=== PATIENT | female | born 1940 | race Caucasian/White ===

== ENCOUNTER 2016-05-19 11:41 | Inpatient (IN) | payer MEDICARE, OTHER ==
[~2016-05-19] VITALS: Ht 170.2 cm; Wt 63.0 kg
--- NOTE | ~2016-05-19 | CON ---
PATIENT'S NAME: ALLAN SANDERS [facility] AGE: 75 Y [address] ROOM: [place] [address] LOCATION: GPCU ADMIT DATE: 05/19/2016 Consultation DISCHARGE DATE: FAMILY PHYSICIAN: Linda Hopson MD ATTENDING PHYSICIAN: ADONAY SABILLON REASON FOR CARDIOLOGY CONSULTATION: Atrial fibrillation. HISTORY OF PRESENT ILLNESS: This is a 75-year-old female, who has been having increased complaints of shortness of breath over the last few weeks that has progressively gotten worse. She initially presented to Dr. Hopson's office for evaluation. She then presented to the emergency department, where she was found to be hypoxic and hypotensive. She had noted hypoxia and hypotension at the clinic, and this was the reason for transfer to the [facility] for further evaluation and higher level of care. She had a previous history of COPD and normally wears up to 4 L of oxygen at home. She does have an extensive smoking history and just quit smoking about 2 weeks ago. She has smoked half a pack per day for the last 50 years. She also has a previous history of diastolic congestive heart failure, but does not take a daily diuretic and has noted some increased edema over the last few weeks as well. She normally follows cardiology care with Dr. 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 Last ejection fraction was noted to be 60%-65%. Her chart review shows a previous history of paroxysmal atrial fibrillation and at this time, there is no contraindication that can be found for anticoagulation. PAST MEDICAL HISTORY: 1. Hypertension. 2. Chronic diastolic congestive heart failure. 3. COPD. 4. Hyperlipidemia. 5. Pulmonary hypertension. 6. Noncritical coronary artery disease. FAMILY HISTORY: There is noted family history of hypertension and coronary artery disease, specifically from her father. Her mother had osteoarthritis. SOCIAL HISTORY: As listed in the HPI as well as denying any alcohol or illicit drug use. CURRENT MEDICATIONS: 1. Lasix 40 mg IV daily. PATIENT'S NAME: ALLAN SANDERS [facility] AGE: 75 Y [address] ROOM: [place] [address] LOCATION: GPCU ADMIT DATE: 05/19/2016 Consultation DISCHARGE DATE: FAMILY PHYSICIAN: Linda Hopson MD ATTENDING PHYSICIAN: ADONAY SABILLON 2. Levaquin 750 mg IV daily. 3. Solu-Medrol 60 mg IV twice daily. 4. Lipitor 40 mg p.o. daily. 5. NicoDerm 21 mg transdermally daily. 6. Heparin IV per ACS protocol. MEDICATION ALLERGIES: No known medication allergies. REVIEW OF SYSTEMS: Pertinent positive review of systems is listed in HPI. All other review of systems are evaluated and negative. DIAGNOSTICS: CMS evaluation shows sodium of 144, potassium 4.4, BUN of 36, creatinine 1.0, glucose of 138, and magnesium of 2.2. She had [place] proB[place] 6257. CT for PE protocol was negative for pulmonary embolus. CBC evaluation shows a white blood cell count of 5.7, hemoglobin 9.5, hematocrit 32.5, and a platelet of 132. PHYSICAL EXAMINATION: VITAL SIGNS: Temp 98.0, pulse 89, respirations 20, blood pressure 133/61, O2 saturation 95% on 4 L nasal cannula. The patient weighs 70.9 kg. SKIN: [place], warm, and dry. EYES: Sclerae clear. No xanthelasmas. ENT: Oral mucosa is pink and moist. No jugular venous distention. No carotid bruits. CHEST: Respirations are even and unlabored. Lung sounds are diminished to bilateral basilar lobes. She does have a mild expiratory wheeze noted to the upper lobes. HEART: Irregular rate and rhythm. Normal S1, S2. ABDOMEN: Soft, nontender. MUSCULOSKELETAL: Equal muscle strength in the upper and lower extremities bilaterally against resistance. EXTREMITIES: Peripheral pulses palpable. No clubbing or cyanosis noted. Does have 2 to 3+ lower extremity edema present as well as an ecchymosis. PSYCHIATRIC: Alert and oriented. Mood and affect are appropriate. IMPRESSION AND PLAN: Per Dr. Owens: 1. New-onset atrial fibrillation. Rates are currently well controlled with previous doses of IV digoxin and is anticoagulated with IV heparin. 2. Acute on chronic hypercapnic respiratory failure. 3. Hypotension, currently resolved. 4. Chronic diastolic congestive heart failure. PATIENT'S NAME: ALLAN SANDERS [facility] AGE: 75 Y [address] ROOM: [place] [address] LOCATION: [facility] ADMIT DATE: 05/19/2016 Consultation DISCHARGE DATE: FAMILY PHYSICIAN: Linda Hopson MD ATTENDING PHYSICIAN: ADONAY SABILLON 5. Chronic obstructive pulmonary disease. 6. Chronic kidney disease. 7. Hypertension. We will try and get Dr. Hill's last office records for full evaluation of her previous cardiac history. We will continue to monitor, evaluate, and treat as appropriate. Thank you for this consult. Thank you for allowing [facility] to interact in the care of this patient. RAIZA GRAVES APRN FOR MD WOOD MAHAN/isabel /[id number] d: 05/20/16 2211 t: 06/03/16 0923, CONSULTATION REPORT
--- NOTE | ~2016-05-19 | HP ---
PATIENT'S NAME: ALLAN [facility]ERS [facility] AGE: 75 Y [address] ROOM: [address] [place] [address] [facility] ADMIT DATE: 05/19/2016 History & Physical DISCHARGE DATE: FAMILY PHYSICIAN: Linda Hopson MD ATTENDING PHYSICIAN: ADONAY SABILLON DATE OF SERVICE: ADDENDUM: I have personally spoken to Dr. Owens regarding the consult for the new onset atrial fibrillation with RVR with an acute on chronic diastolic heart failure. Dr. Owens will be evaluating the patient today for further recommendation and planning. Regarding her acute on chronic hypoxemic hypercapnic respiratory failure from COPD exacerbation, patient is alert and oriented x3. Oxygen saturation has improved significantly after the digoxin was given for the AFib RVR in the setting of borderline blood pressure and the heart failure. For now, I am going to hold off on the BiPAP. I will check an ABG in the morning to see if BiPAP will be necessary. Given the patient does not have any altered mental status and oxygen saturation has already improved to 94% on 4 L nasal cannula, at home she uses 2 L at all times. She was requiring up to 15 L face mask to reach 96%. For this reason, I am going to hold off on the BiPAP and repeat ABG in the morning to decide about BiPAP. Further plan and recommendation per Cardiology to see for the consult. I saw the patient again as a followup. The patient is doing well. Still remained alert and oriented x3 and says that the dyspnea has improved a lot. No chest pain. No cough at the moment. Further plan depends on clinical course. The arterial line was removed already given that the blood pressure was able to be read by the blood pressure cuff. IV fluids have been stopped already also. ADONAY SABILLON MD CC/modl /[id number] D: [id number] T: [id number] HISTORY & PHYSICAL
--- NOTE | ~2016-05-19 | ER ---
PATIENT'S NAME: ALLAN SANDERS [facility] AGE: 75 Y [address] ROOM: [place] [address] LOCATION: GPCU ADMIT DATE: 05/19/2016 ER/Outpatient Report DISCHARGE DATE: FAMILY PHYSICIAN: Linda Hopson MD ATTENDING PHYSICIAN: ADONAY SABILLON CHIEF COMPLAINT: Difficulty breathing. HISTORY OF PRESENT ILLNESS: The patient arrives by ambulance from [facility] where she saw Dr. Ramesh for shortness of breath which started this morning. The patient has a known history of COPD, pulmonary hypertension, and reports atrial fibrillation, but there is no medical documentation of same. She also was noted to have very low blood pressures in the 70s at their facility and was requiring multiple liters of oxygen to maintain oxygen levels above 70%. She is a former smoker. She denies any cough or fevers associated with this. She denies any significant pain. PAST MEDICAL HISTORY: Noted above and documented on the medical record. MEDICATIONS: Documented as available on the medical record. ALLERGIES: DOCUMENTED AVAILABLE ON THE MEDICAL RECORD. SOCIAL HISTORY: Documented as available on the medical record. REVIEW OF SYSTEMS: All systems reviewed and negative except as noted in the HPI. PHYSICAL EXAMINATION: VITAL SIGNS: Blood pressure is extremely low, pulse is between 91 and 150 beats per minute, respirations are 20 and labored, temp is 95.4, SpO2 is 96% on 15 L nonrebreather with poor plethysmography. GENERAL: Frail, ill-appearing female, resting on exam table in moderate respiratory distress, but able to speak in full sentences and answer appropriately. NEUROLOGIC: The patient is awake and alert. She follows commands in all extremities. She is adamant about having some coughing. She has no obvious neurologic deficits. No asymmetry on exam. HEENT: Normocephalic, atraumatic. The eyes are PERRL. The oropharynx is PATIENT'S NAME: ALLAN SANDERS [facility] AGE: 75 Y [address] ROOM: [place] [address] LOCATION: GPCU ADMIT DATE: 05/19/2016 ER/Outpatient Report DISCHARGE DATE: FAMILY PHYSICIAN: Linda Hopson MD ATTENDING PHYSICIAN: ADONAY SABILLON clear. Teeth are in poor repair. NECK: Supple. Trachea is midline. HEART: Tachycardic irregularly. No obvious murmurs. LUNGS: Diminished air entry bilateral, coarse throughout, most prominent at the bases. ABDOMEN: Soft, nontender, and nondistended. No rebound or guarding. EXTREMITIES: Very cool in the fingers, poor capillary refill, cyanotic digits. The pulses are faint. The extremities do not reveal any erythema or edema. SKIN: Skin is with poor turgor throughout. No obvious rashes. LABORATORY DATA AND X-RAYS: Chest x-ray reveals possible pneumonia, appropriately placed IJ line, no pneumothorax. The EKG reveals atrial fibrillation. Blood gas; pH 7.3, pCO2 is 85, pO2 is 322, bicarb is 41.8. Lactate 0.9. Procalcitonin is below threshold. CPK of 53. Hemoglobin A1c is 5.2. Anion gap of 7.3, CO2 is 37, creatinine 0.8. GFR is greater than 60. Troponin is below threshold. ProBNP is 4959. LFTs are without any significant abnormalities other than minimally elevated direct bilirubin and minimally elevated AST and ALT at 64 and 88 respectively. Magnesium is 2.2. WBC 6.6, hemoglobin is 9.9, and platelets of 148. INR is 1.2. D-dimer is 1.24. CT of the pulmonary arteries without abnormality, some pulmonary edema appreciated. IMPRESSION: 1. Heart failure exacerbation versus chronic obstructive pulmonary disease exacerbation. 2. Oxygenation difficulty with severe hypoxia. 3. Hypotension, possibly secondary to atrial fibrillation with rapid ventricular response. EMERGENCY DEPARTMENT COURSE: The patient was seen and evaluated. Tenuous IV obtained, second IV access not able to be obtained. Fluids were started through initial IV and the central line was placed. Anesthesia did obtain an arterial line for us. The patient did have improvement in her blood pressures at that time. Postprocedural chest x-ray for the IJ revealed no pneumothorax and the IJ line to be in the appropriate position. The patient remained, otherwise, stable. Did have better blood pressures upon initiation of the arterial line and heart rates had come down somewhat, but she remained in atrial fibrillation. With her complicated presentation and course, Dr. Sabillon, hospitalist, helped manage her in the emergency department. She will be admitted to PCU under his care for further evaluation and treatment of this complex presentation with multiple medical conditions. Procedure note: I personally placed the central line after obtaining signed consent for procedure. The right IJ was identified with ultrasound. It was determined to be an appropriate access. The patient was placed as recumbent as she would tolerate which was still slightly with head of bed elevated. The IJ remained appropriately distended. Sterile technique was used to secure the field. A 1 mL of lidocaine was placed over the proposed site for anesthesia. The area was prepped with chlorhexidine and was draped appropriately. The needle was advanced into the IJ under ultrasound guidance. Nonpulsatile dark blood was aspirated in a superficial lateral collapsible vessel. The wire was advanced using a Seldinger technique and confirmed to be in the IJ by ultrasound. The skin was dilated with the dilator and the triple-lumen 7- Canadian catheter was placed after ensuring that all ports were flushed. This was placed to a depth of 15 cm and sut[address] in place. There was a small hematoma at the site. I was able to again visualize the catheter going into the IJ, not the carotid. Again the blood flow was nonpulsatile. The lumens were all rocio and flushed easily. The patient tolerated this procedure well and a sterile dressing was placed. I did attempt a right radial arterial line, was able to get blood return but could not thread the catheter. MD KIRILL MARVIN/isabel /[id number] d: 05/20/16 0024 t: 06/02/16 2145, OUTPATIENT REPORT
--- NOTE | ~2016-05-19 | ENPV ---
Vascular Lower Extremities DVT Study Procedure Demographics Patient Name ALLAN SANDERS Date of Study 05/19/2016 Patient Number [id number] Gender Female Date of 1940 Age 75 Visit Number [id number] Height 67 Accession Number [id number] Weight 135 Referring Emiliana Arango MD Physician Physician Physician Ordering Physician Yue Espino MD Diesel Engineer Insurance Claim Approver Hola [place] [facility] Conclusions Summary Normal venous duplex examination of the legs bilaterally with normal venous Doppler signals noted throughout. No evidence of thrombophlebitis is noted bilaterally in the deep and superficial veins of the legs. Small calf thrombi cannot be excluded. Pulsatile flow noted throughout the venous system consistent with CHF. Procedure Type of Study: Veins:Lower Extremities DVT Study, Venous Duplex Lower Extremity Bilateral. Additional Indications:Elevated D-dimer Appropriate Use Criteria:8 Allergies - No known allergies. Patient Status:Routine. Study Location:Inpatient Portable. Technical Quality:Poor visualization. Velocities are measured in cm/s ; Diameters are measured in cm Right Lower Extremities DVT Study Measurements Right 2D and Doppler Measurements + + + + +---------+------+--------+ !Location !Visualized!Compressibility!Thrombosis!Signal !Reflux!Reflux ! ! ! ! ! ! ! !(sec) ! + + + + +---------+------+--------+ !GSV Thigh !Yes !Yes !None !Pulsatile! ! ! + + + + +---------+------+--------+ !Common !Yes !Yes !None !Pulsatile! ! ! !Femoral ! ! ! ! ! ! ! + + + + +---------+------+--------+ !Prox !Yes !Yes !None !Pulsatile! ! ! !Femoral ! ! ! ! ! ! ! + + + + +---------+------+--------+ !Mid !Yes !Yes !None !Pulsatile! ! ! !Femoral ! ! ! ! ! ! ! + + + + +---------+------+--------+ !Dist !Yes !Yes !None !Pulsatile! ! ! !Femoral ! ! ! ! ! ! ! + + + + +---------+------+--------+ !Popliteal !Yes !Yes !None !Pulsatile! ! ! + + + + +---------+------+--------+ !PTV !Yes !Yes !None !Pulsatile! ! ! + + + + +---------+------+--------+ !Peroneal !Yes !Yes !None !Pulsatile! ! ! + + + + +---------+------+--------+ Left Lower Extremities DVT Study Measurements Left 2D and Doppler Measurements + + + + +---------+------+--------+ !Location !Visualized!Compressibility!Thrombosis!Signal !Reflux!Reflux ! ! ! ! ! ! ! !(sec) ! + + + + +---------+------+--------+ !GSV Thigh !Yes !Yes !None !Pulsatile! ! ! + + + + +---------+------+--------+ !Common !Yes !Yes !None !Pulsatile! ! ! !Femoral ! ! ! ! ! ! ! + + + + +---------+------+--------+ !Prox !Yes !Yes !None !Pulsatile! ! ! !Femoral ! ! ! ! ! ! ! + + + + +---------+------+--------+ !Mid !Yes !Yes !None !Pulsatile! ! ! !Femoral ! ! ! ! ! ! ! + + + + +---------+------+--------+ !Dist !Yes !Yes !None !Pulsatile! ! ! !Femoral ! ! ! ! ! ! ! + + + + +---------+------+--------+ !Popliteal !Yes !Yes !None !Pulsatile! ! ! + + + + +---------+------+--------+ !PTV !Yes !Yes !None !Pulsatile! ! ! + + + + +---------+------+--------+ !Peroneal !Yes !Yes !None !Pulsatile! ! ! + + + + +---------+------+--------+ Signature dtt: ILANA JUDD: 05/19/166 Physician Self Edit
--- NOTE | ~2016-05-19 | ECHO ---
Transthoracic Echocardiography Report (TTE) Demographics Patient Name ALLAN SANDERS Date of Study 05/20/2016 Patient Number [id number] Visit Number [id number] Date of 1940 Room Number G6318 Accession Number [id number] Gender Female Age 75 year(s) Referring Emiliana Sousassru Garcia Nurse Ldr Jean Tyson Physician MD Yue Espino MD Physician Interpreting Yane Sorto Preparation Department Supervisor Physician Supervising Ordering Physician Jake Garcia MD, MD/P Nurse Stress Pen And Pencil Repairer Conclusions Summary Technically difficult study. The estimated left ventricular ejection fraction is 50-55%. Diastolic function indeterminate due to patient's arrhythmia. The right atrium is moderately dilated. The left atrium is mildly dilated. Dilated IVC with poor inspiratory collapse consistent with elevated RA pressure. IVC measures 2.59 cm with poor inspiratory collapse. There is moderate pulmonary hypertension. The pulmonary pressure (RVSP) is 54 mmHg. Procedure Type of Study TTE procedure:2D Echocardiogram, M-Mode, Doppler , Color Doppler. Procedure Date Date: 05/20/2016 Start: 02:51 PM Study Location: Inpatient Portable Technical Quality: Adequate visualization Indications:Dyspnea/SOB. Appropriate Use Criteria: 9 Patient Status: STAT HR: 136 bpm BP: 108/80 mmHg Allergies - No known allergies. M-Mode/2D Measurements LV Diastolic Dimension: 5.05 cm LV Systolic Dimension: 3.16 cm LV Septum Diastolic: 1.03 cm LV PW Diastolic: 1.02 cm AO Root Dimension: 2.2 cm Cardiac Output: 6.47 l/min LA Dimension: 3.3 cm EF Estimated: 55 % LVOT: 1.9 cm LVOT VTI: 16.8 cm RV Base: 2.5 cm LV Stroke volume: 47.61 ml RV Length: 5.88 cm TAPSE: 2.06 cm TDI-S': 23.1 cm/s Doppler Measurements AV Peak Velocity: 1.78 m/s MV Peak E-Wave: 1.39 m/s AV Peak Gradient: 12.67 mmHg AV Mean Gradient: 6 mmHg MV P1/2t: 40 msec LVOT Peak Velocity: 1.04 m/s TR Velocity:3.14 m/s PV Peak Velocity: 1.35 m/s TR Gradient:39.44 mmHg PV Peak Gradient: 7.29 mmHg Estimated RAP:15 mmHg Estimated PASP: 54.44 mmHg Estimated RVSP: 54 mmHg E' Septal Velocity: 0.08 m/s E' Lateral Velocity: 0.1 m/s Findings Left Ventricle The left ventricle is normal in size . Diastolic function indeterminate due to patient's arrhythmia. Right Ventricle Normal right ventricle structure and function. Left Atrium The left atrium is mildly dilated. Right Atrium The right atrium is moderately dilated. Dilated IVC with poor inspiratory collapse consistent with elevated RA pressure. IVC measures 2.59 cm with poor inspiratory collapse. Mitral Valve Mild mitral annular calcification. Aortic Valve The aortic valve is mildly sclerotic. Tricuspid Valve Mild tricuspid regurgitation by color Doppler. There is moderate pulmonary hypertension. The pulmonary pressure (RVSP) is 54 mmHg. Pulmonic Valve Normal pulmonic valve structure and function. Pericardial Effusion Trivial pericardial effusion. Miscellaneous Visualized portions of the aortic root and ascending aorta appear normal in size. Pleural Effusion No evidence of pleural effusion. Signature dtt: PADDY SHAH dtd: 05/20/16 1451 Physician Self Edit
--- NOTE | ~2016-05-19 | HP ---
PATIENT'S NAME: ALLAN SANDERS [facility] AGE: 75 Y [address] ROOM: [id number] [place], [place] [address] [facility] ADMIT DATE: 05/19/2016 History & Physical DISCHARGE DATE: FAMILY PHYSICIAN: Linda Hopson MD ATTENDING PHYSICIAN: ADONAY SABILLON DATE OF SERVICE: CHIEF COMPLAINT: Hypotension, hypoxia, atrial fibrillation with RVR as well as dyspnea at rest and also on exertion. HISTORY OF PRESENT ILLNESS: This is a 75-year-old female, who says that she has been experiencing exertional dyspnea and dyspnea at rest for the last 2 to 3 weeks and has been progressively getting worse. She also complains of generalized weakness in the last few weeks as well. She denies any fall. She denies any chest pain, palpitation, diaphoresis, shivering, or chills. The patient states that for the last few days she has been having some dry cough without any sputum. She states that she recently quit smoking about 2 weeks ago. She used to smoke about half pack per day for the last 45 to 50 years. She has a very severe COPD, chronically on 4 L oxygen nasal cannula at home, 31/08. Today, she went to the [facility] for followup and the patient was found to be very hypotensive, blood pressure to be in the low 50s and heart rate is in the high 140s and also hypoxic with 4 L nasal cannula saturating at 75% and the patient was complaining of dyspnea. EKG was performed in the office and it showed atrial fibrillation with RVR, heart rate in the 128. According to the patient, she told me that Dr. Hill is her primary appraiser, and the patient told me that she had been told in the past that she had atrial fibrillation, but she was not really sure of this information when I asked the patient again. Chest x-ray was performed in the office and there was a concern for the right lower lung infiltrate. The patient was sent over here for higher level of care. REVIEW OF SYSTEMS: As mentioned in the history of present illness. All other systems reviewed and negative except those mentioned in the history of present illness. PAST MEDICAL HISTORY: Per medical records. 1. Very severe COPD, on 4 L nasal cannula, 31/08. 2. Hypertension. 3. Chronic diastolic congestive heart failure. We do not have any echo on file. 4. Hyperlipidemia. PATIENT'S NAME: ALLAN SANDERS [facility] AGE: 75 Y [address] ROOM: [id number] [place], [place] [address] [facility] ADMIT DATE: 05/19/2016 History & Physical DISCHARGE DATE: FAMILY PHYSICIAN: Linda Hopson MD ATTENDING PHYSICIAN: ADONAY SABILLON 5. Lcysqdxa-vo-xpjmea pulmonary hypertension per medical records. Again, we do not have any echo on file to know the numbers. 6. Possible multiple sclerosis. 7. According to our medical records in the [facility], the patient had cardiac catheterization performed in October 29, 2015. At that time, it showed nonobstructive coronary artery disease. Normal left ventricular ejection fraction with EF of 75%. ALLERGIES: NO KNOWN DRUG ALLERGIES ACCORDING TO THE MEDICAL RECORDS. HOME MEDICATIONS: Currently has been reconciled. SOCIAL HISTORY: The patient was a former cigarette smoker, she quit about 2 to 3 weeks ago, she used to smoke about half pack per day for the last 45 to 50 years. She denies any alcohol or any illegal drug use. FAMILY HISTORY: Father had diabetes, hypertension, and coronary artery disease, but she could not remember all the details. Mother had osteoarthritis and she could not recall any other past medical history in the mother. PAST SURGICAL HISTORY: The patient could not remember and denies any. PHYSICAL EXAMINATION: VITAL SIGNS: At the time of my dictation; temperature 98, heart rate 110, blood pressure 110/70, MAP of 79, respiration rate 14, and saturation 90% on face mask on 15 L. GENERAL APPEARANCE: Alert and oriented x3. In no acute distress. HEENT: Pupils equally round and reactive to light. Extraocular muscles intact. Nasal turbinates are normal bilaterally. Anicteric sclerae. Moist oral mucosa. No oral thrush. NECK: No JVD. No cervical lymphadenopathy. No neck stiffness. CARDIOVASCULAR: Irregularly irregular rate and rhythm. Tachycardic. Could not appreciate murmur, rubs, or gallops. RESPIRATORY: Decreased breath sounds with scattered wheezing diffusely with very decreased breath sounds. Could not appreciate crackles, rhonchi, or rales. ABDOMEN: Soft, nontender, nondistended, normal bowel sounds. No hepatosplenomegaly. Bowel sounds are present. No palpable mass. EXTREMITIES: +2 bilateral pitting edema in bilateral lower extremities. The patient cannot tell me this is acute on chronic because she does not remember. PATIENT'S NAME: ALLAN SANDERS [facility] AGE: 75 Y [address] ROOM: [id number] [place], [place] [address] [facility] ADMIT DATE: 05/19/2016 History & Physical DISCHARGE DATE: FAMILY PHYSICIAN: Linda Hopson MD ATTENDING PHYSICIAN: ADONAY SABILLON NEUROLOGIC: Grossly nonfocal. SKIN: She does have cyanosis in the finger tips of each finger and also on the tips of each toes. I could still feel the dorsalis pedis pulse and posterior tibialis pulse bilaterally. MUSCULOSKELETAL: No joint pain. No muscle pain. Range of motion intact. LABORATORY DATA: ABG performed on the face mask on 15 L showed pH of 7.30, pCO2 of 85, pO2 of 322, bicarbonate 41.8, and saturation of 100%. Lactic acid 0.9. Troponin less than 0.04. CPK 53. ProBNP 4959. White blood cells 6.6, hemoglobin 9.9, hematocrit 34.1, MCV is 111.4, and platelet 148. Glucose 102, BUN 28, creatinine 0.8, sodium 142, potassium 4.3, chloride 102, CO2 of 27, calcium 7.7, total protein 6.5, albumin 3.2, AST 64, ALT 88, alkaline phosphatase 153, total bilirubin 0.9, direct bilirubin 0.4, magnesium 2.2, GFR more than 60, INR 1.22, PTT 32, and hemoglobin A1c 5.2. Urinalysis not yet received. Influenza not yet performed. Procalcitonin less than 0.05. CK-MB 3.4. D- dimer 1.24. IMAGING STUDIES: Chest x-ray performed on admission, official report is pending. Based on my review, it looks very similar to the last one back in April 30, 2014. At that time, it was read as suspected right lung base pneumonia. Official reading is pending. CT pulmonary angiogram currently has been performed and report is pending. EKG here on admission showed atrial fibrillation with RVR, heart rate 118, QRS 88 milliseconds. ER COURSE: Upon arrival here, the patient's blood pressure was difficult to be obtained, not with the blood pressure cuff and also manually also has difficult time to get blood pressure. Eventually, arterial line was placed in the left radial artery by the certified registered nurse of the Anesthesia and the blood pressure was able to be obtained. However, this was obtained after 1 L of IV normal saline bolus. Blood pressure currently is read as around 100 to 110s systolic, MAP around 70 to 79. In the emergency room, given that the patient has a very poor IV access, the patient eventually had triple-lumen central line placed in the right IJ by the ER physician, Dr. Boogie. Chest x-ray was performed subsequently after the central line placement and was clear to be used after being review by the ER physician, Dr. Boogie. The patient currently is getting a second liter of normal saline bolus. Heart rate is still running in the 100 to 110, 110 to 120, still atrial fibrillation with RVR. Her oxygen level requirement still on the 15 L face mask, barely saturating at 90%. The patient is currently being wheeled to the CT pulmonary angiogram to rule out pulmonary embolism. ASSESSMENT AND PLAN: PATIENT'S NAME: ALLAN SANDERS [facility] AGE: 75 Y [address] ROOM: [place] [address] LOCATION: [facility] ADMIT DATE: 05/19/2016 History & Physical DISCHARGE DATE: FAMILY PHYSICIAN: Linda Hopson MD ATTENDING PHYSICIAN: ADONAY SABILLON 1. Regarding her acute on chronic hypoxemic hypercapnic respiratory failure; likely from chronic obstructive pulmonary disease exacerbation, from possible right lower lung pneumonia as well as from possible pulmonary embolism, and also in the setting of probably new onset atrial fibrillation with rapid ventricular response in the setting of chronic diastolic heart failure: Currently, the patient will be going to get a CT pulmonary angiogram to rule out pulmonary embolism. Depending on the finding, further plan will be decided. The patient is a DNR/DNI. ABG showed that she does have acute on chronic hypoxemic hypercapnic respiratory failure. Therefore, I am going to put on the BiPAP given that reviewing her prior lab, usually her pCO2 back in 2014 runs in the 46, this time is an 85. Her bicarbonate usually runs in the 35 back in 2014, today is still in the 37. Therefore, this means that she is having acute on chronic hypercapnic hypoxemic respiratory failure. The patient is DNR/DNI. The most I can offer her is a BiPAP at this time. The patient understands. I also explained this to the family member, who also understands. If she does have a pulmonary embolism, therefore anticoagulation will be definitely necessary. If she becomes hypotensive in the setting of a pulmonary embolism, further plan will be necessary including tPA for hemodynamically unstable pulmonary embolism. Further plan depends on clinical course. For the possible pneumonia and chronic obstructive pulmonary disease exacerbation given that she is actively wheezing, I will treat her with the chronic obstructive pulmonary disease protocol with IV Solu-Medrol 125 mg IV right now followed by 60 mg b.i.d. Nebulization with Xopenex plus Atrovent q.6 hours while awake and also Xopenex q.2 hours p.r.n. She will be getting pneumonia workup including sputum culture, Gram-stain, urinary antigen, and Legionella. We will also check influenza nasal antigen swab. We will give incentive spirometry to use 10 times per hour while awake and then cover with IV antibiotics with IV Levaquin since she came from home. 2. Regarding her apparently probably new onset atrial fibrillation with rapid ventricular response, this could be the setting from the possible pulmonary embolism or from the chronic obstructive pulmonary disease exacerbation: The patient already had a recent cardiac catheterization back in October 2015, it was clean. The patient does have edema in the leg, but not sure if this is chronic or acute given the patient does not remember. The patient does not look volume overloaded to me in general. On chest x-ray, I do not really appreciate any pleural effusion. The patient was really hypotensive on arrival, I am not too concerned about volume overload her right now given that she was hemodynamically unstable on arrival. For now, she is getting a second liter of NS bolus right now. After that, I will put on maintenance fluids. The important thing here is to rule out pulmonary embolism. I will also place a Cardiology consult for the management of the atrial fibrillation with rapid ventricular response. Echo right now probably would not be beneficial PATIENT'S NAME: ALLAN SANDERS [facility] AGE: 75 Y [address] ROOM: [place] [address] LOCATION: [facility] ADMIT DATE: 05/19/2016 History & Physical DISCHARGE DATE: FAMILY PHYSICIAN: Linda Hopson MD ATTENDING PHYSICIAN: ADONAY SABILLON given that the patient is in atrial fibrillation with rapid ventricular response. I will defer the echo to the appraiser. Cardiac enzymes first set were negative. I am not going to cycle given that the patient does not have any chest pain. EKG was nonischemic. ProBNP is high, but this could be from several different causes besides heart failure, it could be also be from the pulmonary embolism, from the pulmonary hypertension, from the atrial fibrillation, from the sepsis, and also from chronic obstructive pulmonary disease as well. Further plan depends on clinical course. 3. Regarding her transaminitis, she denies any abdominal pain. I will cycle the liver function test tomorrow morning. 4. Further plan depends on clinical course. We are waiting for the report for the CT pulmonary angiogram and plan can be decided after the test comes back. The patient could also be having overlapping syndrome with chronic obstructive pulmonary disease exacerbation in combination with acute on chronic diastolic heart failure, which is triggered by the atrial fibrillation with rapid ventricular response or atrial fibrillation with rapid ventricular response triggered by the chronic obstructive pulmonary disease exacerbation or vice versa. Either way, she will be treated right now for the chronic obstructive pulmonary disease exacerbation as well as for the atrial fibrillation with rapid ventricular response and likely acute on chronic diastolic heart failure if the pulmonary angiogram excludes pulmonary embolism. 5. Deep venous thrombosis prophylaxis. The patient will be on Lovenox subcu unless she will go on heparin drip if there is any pulmonary embolism. 6. Code status. She is a DNR/DNI. Time spent on the day of admission 50 minutes including chart review, interviewing and examining the patient, addressing all the questions and concerns that the patient had, also went over the plan of care with the patient's nurses and also with the patient's family member at the bedside. MD LUCÍA MEHTA/isabel /[id number]: [id number] T: [id number] HISTORY & PHYSICAL
--- NOTE | ~2016-05-19 | DS ---
PATIENT'S NAME: ALLAN SANDERS [facility] AGE: 75 Y [address] ROOM: [place] [address] LOCATION: [facility] ADMIT DATE: 05/19/2016 Discharge Summary DISCHARGE DATE: 05/27/2016 FAMILY PHYSICIAN: Linda Hopson MD ATTENDING PHYSICIAN: Cahz Turner PRIMARY DIAGNOSES: 1. [id number] hypoxic and hypercapnic respiratory failure. 2. Chronic obstructive pulmonary disease exacerbation. 3. Atrial fibrillation with rapid ventricular response. 4. Hypotension, secondary to rapid ventricular rate. 5. Essential hypertension. 6. Hyperlipidemia. 7. Moderate protein-calorie malnutrition. 8. Generalized weakness. OPERATIONS/PROCEDURES: CT of the chest per PE protocol performed 05/19/2016 was negative for PE, but showed evidence of CHF and severe COPD. Abdominal ultrasound performed 05/20/2016 demonstrated pleural fluid and a small volume of free fluid in the abdomen. HISTORY OF PRESENTING ILLNESS/REASON FOR ADMISSION: Please refer to the H and P dictated 05/19/2016. HOSPITAL COURSE: The patient was admitted to the hospital as noted above with a presumptive diagnosis of [id number] hypoxic hypercapnic respiratory failure with COPD exacerbation and atrial fibrillation with rapid ventricular response. She was hypotensive at the point of admission. She was seen and evaluated by Cardiology. She eventually became rate- controlled with digoxin. Unfortunately, her digoxin became toxic and difficult to manage and this was discontinued. She was managed on a split- dosed diltiazem regimen in addition to beta-francisco regimen. She was anticoagulated with Xarelto and tolerated that well. She received some Physical Therapy and Occupational Therapy. Steroid regimen was tapered. She was eventually taken off of antibiotic therapy and cultures remained negative. By the end of the 10th day of her hospital stay, it was felt she would be stable enough for discharge to nursing facility care for intermediate including physical therapy, occupational therapy, and continued medication management as well as close clinical follow up with primary care provider and outpatient followup with Cardiology. PATIENT'S NAME: ALLAN SANDERS [facility] AGE: 75 Y [address] ROOM: [place] [address] LOCATION: [facility] ADMIT DATE: 05/19/2016 Discharge Summary DISCHARGE DATE: 05/27/2016 FAMILY PHYSICIAN: Linda Hopson MD ATTENDING PHYSICIAN: Chaz Turner DISCHARGE INSTRUCTIONS: 1. Diet: Regular as tolerated. 2. Activity as tolerated. MEDICATIONS: 1. Prednisone tapering course 20 mg p.o. b.i.d. x2 more days, then 10 mg p.o. b.i.d., then 5 mg p.o. b.i.d. each x3 days, then 5 mg daily. 2. Metoprolol 12.5 mg p.o. b.i.d. 3. Potassium 20 mEq p.o. daily. 4. Lasix 40 mg p.o. daily. 5. Diltiazem ER 120 mg p.o. q.h.s. and 180 mg p.o. daily. 6. DuoNeb per nebulizer q.6 h. p.r.n. 7. Levalbuterol 1.25 mg per nebulizer q.6 h. p.r.n. 8. Xarelto 20 mg p.o. daily. 9. MiraLAX 17 g p.o. b.i.d. 10. Acetazolamide 250 mg p.o. daily. 11. Nicotine patch 21 mg applied topically daily (do not smoke). 12. Atorvastatin 40 mg p.o. daily. FOLLOWUP: She will follow up with Dr. Linda Hopson in 5-7 days. She will have outpatient followup Cardiology in 1-2 weeks. CONDITION ON DISCHARGE: Fair. Total time spent on discharge process is 45 minutes. MD MAHESH SERRATO/isabel /[id number] d: 05/28/16 0504 t: 05/31/16 1612, DISCHARGE SUMMARY
[~2016-05-19 11:41] MED LIST changes: -AMIODARONE HCL400 MG PO; -ATROVENT HFA12.9 G1 INH; -ATROVENT I0.5 MG/2.5 INH; -CARDIZEM CD180 MG PO; -CARDIZEM120 MG PO; -CORDARONE,PACE200 MG PO; -DIAMOX250 MG PO; -DULCOLAX10 MG R; -GLUCOPHAGE500 MG PO; -HUMALOG100 UNIT/1; -LASIX40 MG PO; -LEVAQUIN 250 M250 MG PO; -LEVEMIR100 UNIT/1 SUB-Q; -LEVOTHROID (SY25 MCG PO; -LIPITOR40 MG PO; -LOPRESSOR25 MG PO; -MILK OF MA400 MG/5 M PO; -MIRALAX PO527 GM/BOT PO; -OXYGEN M-15 INH; -PERCOCET 5-3251 EACH PO; -POTASSIUM CHLO10 ME1 PO; -PREDNISONE20 MG PO; -PROAIR HFA8.5 GM INH; -TYLENOL325 MG PO; -XARELTO15 MG PO; -XOPENEX INH; -XOPENEX1.25 MG/3 INH; -ZESTRIL2.5 MG PO
[2016-05-19 13:01] LABS: BASOPHIL % 0.2 %; EOSINOPHIL % 0.5 %; HEMATOCRIT 34.1 % (33.0-46.0); HEMOGLOBIN 9.9 g/dL (10.0-15.0); IMMATURE GRANULOCYTE % 0.5 %; LYMPHOCYTE # 0.6 K/uL (0.8-4.0); LYMPHOCYTE % 8.7 %; MCH 32.4 pg (27.0-34.0); MCV 111.4 fl (83.0-98.0); MONOCYTE # 0.4 K/uL (0.0-1.0); MONOCYTE % 6.6 %; MPV 10.7 fl (9.4-12.4); NEUTROPHIL # (ANC) 5.5 K/uL (1.8-7.8); NEUTROPHIL % 83.5 %; NRBC % 0 /100WBC (0-0.00); PLATELET COUNT 148 K/uL (150-450); RDW-CV 15.7 % (11.9-14.6); WBC 6.6 K/uL (4.0-11.0)
[2016-05-19 13:02] LABS: RBC 3.06 M/uL (3.50-5.50)
[2016-05-19 13:13] LABS: INR - (THERAPEUTIC) 1.22 (0.92-1.07); PROTIME 12.8 SECONDS (9.8-11.4); PTT 32 SECONDS (25-32)
[2016-05-19 13:19] LABS: ALBUMIN 3.2 gm/dL (3.5-5.0); TOTAL BILIRUBIN 0.9 mg/dL (0.0-1.5); TOTAL PROTEIN 6.5 g/dL (6.0-8.4)
[2016-05-19 13:27] LABS: BLOOD UREA NITROGEN 28 mg/dL (6-24); CALCIUM 7.7 mg/dL (8.5-10.5); CHLORIDE 102 mMol/L (96-110); CREATININE 0.8 mg/dL (0.5-1.1); ESTIMATED GFR (MDRD EQUATION) > 60; POTASSIUM 4.3 mMol/L (3.7-5.1); SODIUM 142 mMol/L (135-145)
[2016-05-19 13:29] LABS: ANION GAP 7.3 (10.0-19.0); CO2 37 mMol/L (22-32)
[2016-05-19 13:29] LABS: BICARBONATE 41.8 mmol/L (18.0-23.0); LACTATE 0.9 mEq/L (0.50-1.60); PO2 322 mmHg (80-90)
[2016-05-19 13:41] LABS: PCO2 85 mmHg (35-45)
[2016-05-19] MEDS ORDERED: LIPITOR40 MG PO (16:29)
[2016-05-19] MEDS ORDERED: PROAIR HFA8.5 GM INH (16:29)
[2016-05-19] MEDS ORDERED: TYLENOL325 MG PO (16:30)
[2016-05-19] MEDS ORDERED: ATROVENT HFA12.9 G1 INH (16:30)
[2016-05-19 22:03] LABS: BILIRUBIN URINE NEGATIVE (NEGATIVE); BLOOD URINE 25 /UL (NEGATIVE); COLOR URINE YELLOW (YELLOW); GLUCOSE URINE NEGATIVE (NEGATIVE); KETONE URINE NEGATIVE (NEGATIVE); LEUKOCYTES URINE 100 /UL (NEGATIVE); NITRITE URINE POSITIVE (NEGATIVE); PROTEIN URINE 100 mg/dL (NEGATIVE); SPEC GRAVITY URINE 1.015 (1.003-1.035); TURBIDITY URINE 2+ (CLEAR); UROBILINOGEN URINE 4 mg/dL (NORMAL)
[2016-05-19 22:11] LABS: BACTERIA URINE MANY (NEGATIVE); HYALINE CAST URINE 0-2 #/LPF (NEGATIVE); MUCUS URINE 1+ (NEGATIVE); RENAL EPITH URINE 0-2 #/HPF (NEGATIVE); WBC CLUMPS URINE FEW (NEGATIVE)
[2016-05-20 02:10] LABS: HEMATOCRIT 32.5 % (33.0-46.0); HEMOGLOBIN 9.5 g/dL (10.0-15.0); MCH 32.3 pg (27.0-34.0); MCHC 29.2 gm/dL (32.0-36.5); MCV 110.5 fl (83.0-98.0); PLATELET COUNT 132 K/uL (150-450); RBC 2.94 M/uL (3.50-5.50); RDW-CV 15.6 % (11.9-14.6); WBC 5.7 K/uL (4.0-11.0)
[2016-05-20 02:37] LABS: ALBUMIN 2.8 gm/dL (3.5-5.0); ANION GAP 7.4 (10.0-19.0); CALCIUM 7.8 mg/dL (8.5-10.5); POTASSIUM 4.4 mMol/L (3.7-5.1); TOTAL BILIRUBIN 0.4 mg/dL (0.0-1.5); TOTAL PROTEIN 6.5 g/dL (6.0-8.4)
[2016-05-20 04:00] LABS: ABSOLUTE NEUTROPHIL CT (ANC) 5.4 K/uL (1.8-7.8); BANDED NEUTROPHIL # 0.3 K/uL (0.0-0.1); BANDED NEUTROPHILS % 6 %; LYMPHOCYTE # 0.3 K/uL (0.8-4.0); LYMPHOCYTE % 6 %; SEGMENTED NEUTROPHIL % 88 %
[2016-05-20 08:09] LABS: BICARBONATE 42.4 mmol/L (18.0-23.0); PCO2 70 mmHg (35-45); PO2 54 mmHg (80-90)
[2016-05-20 08:23] LABS: HEMATOCRIT 31.8 % (33.0-46.0); HEMOGLOBIN 9.4 g/dL (10.0-15.0); MCH 32.3 pg (27.0-34.0); MCHC 29.6 gm/dL (32.0-36.5); MCV 109.3 fl (83.0-98.0); MPV 10.9 fl (9.4-12.4); PLATELET COUNT 134 K/uL (150-450); RBC 2.91 M/uL (3.50-5.50); RDW-CV 15.6 % (11.9-14.6); WBC 5.5 K/uL (4.0-11.0)
[2016-05-20 08:46] LABS: ALBUMIN 2.9 gm/dL (3.5-5.0); ALK PHOS 154 IU/L (33-138); ALT 103 IU/L (12-78); AST 79 IU/L (10-40); BLOOD UREA NITROGEN 33 mg/dL (6-24); CALCIUM 7.7 mg/dL (8.5-10.5); CHLORIDE 102 mMol/L (96-110); CREATININE 0.9 mg/dL (0.5-1.1); ESTIMATED GFR (MDRD EQUATION) > 60; POTASSIUM 4.5 mMol/L (3.7-5.1); SODIUM 144 mMol/L (135-145); TOTAL PROTEIN 6.5 g/dL (6.0-8.4)
[2016-05-20 08:48] LABS: ABSOLUTE NEUTROPHIL CT (ANC) 4.8 K/uL (1.8-7.8); BANDED NEUTROPHIL # 0.2 K/uL (0.0-0.1); BANDED NEUTROPHILS % 3 %; LYMPHOCYTE # 0.6 K/uL (0.8-4.0); LYMPHOCYTE % 10 %; MONOCYTE # 0.1 K/uL (0.0-1.0); SEGMENTED NEUTROPHIL # 4.7 K/uL (1.8-7.8); SEGMENTED NEUTROPHIL % 85 %
[2016-05-20 08:52] LABS: ANION GAP 9.5 (10.0-19.0); CO2 37 mMol/L (22-32); TOTAL BILIRUBIN 0.6 mg/dL (0.0-1.5)
[2016-05-21 03:47] LABS: ANION GAP 8.1 (10.0-19.0); CALCIUM 7.9 mg/dL (8.5-10.5); POTASSIUM 4.1 mMol/L (3.7-5.1)
[2016-05-21 04:27] LABS: HEMATOCRIT 29.4 % (33.0-46.0); HEMOGLOBIN 8.8 g/dL (10.0-15.0); MCH 32.4 pg (27.0-34.0); MCHC 29.9 gm/dL (32.0-36.5); MCV 108.1 fl (83.0-98.0); MPV 11.6 fl (9.4-12.4); PLATELET COUNT 136 K/uL (150-450); RBC 2.72 M/uL (3.50-5.50); RDW-CV 15.7 % (11.9-14.6); WBC 9.2 K/uL (4.0-11.0)
[2016-05-21 05:18] LABS: ABSOLUTE NEUTROPHIL CT (ANC) 8.9 K/uL (1.8-7.8); BANDED NEUTROPHIL # 0.8 K/uL (0.0-0.1); BANDED NEUTROPHILS % 9 %; LYMPHOCYTE # 0.1 K/uL (0.8-4.0); LYMPHOCYTE % 1 %; MONOCYTE # 0.2 K/uL (0.0-1.0); SEGMENTED NEUTROPHIL # 8.1 K/uL (1.8-7.8); SEGMENTED NEUTROPHIL % 88 %
[2016-05-22 03:51] LABS: ANION GAP 8.2 (10.0-19.0); CALCIUM 7.7 mg/dL (8.5-10.5); POTASSIUM 3.2 mMol/L (3.7-5.1)
[2016-05-22 03:55] LABS: HEMATOCRIT 29.9 % (33.0-46.0); HEMOGLOBIN 9.1 g/dL (10.0-15.0); MCH 32.4 pg (27.0-34.0); MCHC 30.4 gm/dL (32.0-36.5); MCV 106.4 fl (83.0-98.0); MPV 10.7 fl (9.4-12.4); PLATELET COUNT 139 K/uL (150-450); RBC 2.81 M/uL (3.50-5.50); RDW-CV 15.8 % (11.9-14.6); WBC 7.9 K/uL (4.0-11.0)
[2016-05-22 05:00] LABS: ABSOLUTE NEUTROPHIL CT (ANC) 7.2 K/uL (1.8-7.8); BANDED NEUTROPHIL # 0.4 K/uL (0.0-0.1); BANDED NEUTROPHILS % 5 %; LYMPHOCYTE # 0.4 K/uL (0.8-4.0); LYMPHOCYTE % 5 %; MONOCYTE # 0.2 K/uL (0.0-1.0); SEGMENTED NEUTROPHIL # 6.8 K/uL (1.8-7.8); SEGMENTED NEUTROPHIL % 86 %
[2016-05-23 04:16] LABS: CALCIUM 7.6 mg/dL (8.5-10.5)
[2016-05-23 04:21] LABS: HEMATOCRIT 31.2 % (33.0-46.0); HEMOGLOBIN 9.6 g/dL (10.0-15.0); MCH 32.5 pg (27.0-34.0); MCHC 30.8 gm/dL (32.0-36.5); MCV 105.8 fl (83.0-98.0); MPV 10.7 fl (9.4-12.4); PLATELET COUNT 163 K/uL (150-450); RBC 2.95 M/uL (3.50-5.50); RDW-CV 15.8 % (11.9-14.6); WBC 8.2 K/uL (4.0-11.0)
[2016-05-23 05:16] LABS: ABSOLUTE NEUTROPHIL CT (ANC) 7.5 K/uL (1.8-7.8); LYMPHOCYTE # 0.3 K/uL (0.8-4.0); LYMPHOCYTE % 4 %; MONOCYTE # 0.3 K/uL (0.0-1.0); SEGMENTED NEUTROPHIL # 7.5 K/uL (1.8-7.8); SEGMENTED NEUTROPHIL % 92 %
[2016-05-24 04:04] LABS: POTASSIUM 3.4 mMol/L (3.7-5.1)
[2016-05-24 04:05] LABS: ANION GAP 7.4 (10.0-19.0); CALCIUM 7.3 mg/dL (8.5-10.5)
[2016-05-25 03:31] LABS: HEMOGLOBIN 10.1 g/dL (10.0-15.0); MCH 31.9 pg (27.0-34.0); MCHC 29.7 gm/dL (32.0-36.5); MCV 107.3 fl (83.0-98.0); MPV 10.5 fl (9.4-12.4); PLATELET COUNT 165 K/uL (150-450); RBC 3.17 M/uL (3.50-5.50); RDW-CV 16.1 % (11.9-14.6); WBC 8.4 K/uL (4.0-11.0)
[2016-05-25 03:32] LABS: ALBUMIN 3.1 gm/dL (3.5-5.0); ALK PHOS 100 IU/L (33-138); ALT 61 IU/L (12-78); AST 16 IU/L (10-40); BLOOD UREA NITROGEN 31 mg/dL (6-24); CALCIUM 7.7 mg/dL (8.5-10.5); CHLORIDE 108 mMol/L (96-110); CREATININE 0.9 mg/dL (0.5-1.1); ESTIMATED GFR (MDRD EQUATION) > 60; POTASSIUM 3.5 mMol/L (3.7-5.1); TOTAL BILIRUBIN 0.5 mg/dL (0.0-1.5); TOTAL PROTEIN 6.7 g/dL (6.0-8.4)
[2016-05-25 03:33] LABS: ANION GAP 6.5 (10.0-19.0); CO2 35 mMol/L (22-32); SODIUM 146 mMol/L (135-145)
[2016-05-25 05:33] LABS: ABSOLUTE NEUTROPHIL CT (ANC) 7.3 K/uL (1.8-7.8); LYMPHOCYTE # 0.4 K/uL (0.8-4.0); LYMPHOCYTE % 5 %; MONOCYTE # 0.7 K/uL (0.0-1.0); SEGMENTED NEUTROPHIL # 7.3 K/uL (1.8-7.8); SEGMENTED NEUTROPHIL % 87 %
[2016-05-26 03:18] LABS: ALBUMIN 3.1 gm/dL (3.5-5.0); ANION GAP 7.6 (10.0-19.0); BLOOD UREA NITROGEN 30 mg/dL (6-24); CALCIUM 7.8 mg/dL (8.5-10.5); CHLORIDE 108 mMol/L (96-110); CO2 33 mMol/L (22-32); CREATININE 0.8 mg/dL (0.5-1.1); ESTIMATED GFR (MDRD EQUATION) > 60; POTASSIUM 3.6 mMol/L (3.7-5.1); SODIUM 145 mMol/L (135-145)
[2016-05-26 03:24] LABS: PHOSPHORUS 1.8 mg/dL (2.5-4.9)
[2016-05-26 03:40] LABS: HEMATOCRIT 36.3 % (33.0-46.0); HEMOGLOBIN 11.1 g/dL (10.0-15.0); MCH 32.6 pg (27.0-34.0); MCHC 30.6 gm/dL (32.0-36.5); MCV 106.5 fl (83.0-98.0); MPV 10.5 fl (9.4-12.4); PLATELET COUNT 183 K/uL (150-450); RBC 3.41 M/uL (3.50-5.50); RDW-CV 16.2 % (11.9-14.6); WBC 9.8 K/uL (4.0-11.0)
[2016-05-26 04:56] LABS: BANDED NEUTROPHIL # 0.4 K/uL (0.0-0.1); BANDED NEUTROPHILS % 4 %; LYMPHOCYTE # 0.6 K/uL (0.8-4.0); LYMPHOCYTE % 6 %; MONOCYTE # 0.2 K/uL (0.0-1.0); SEGMENTED NEUTROPHIL # 8.6 K/uL (1.8-7.8); SEGMENTED NEUTROPHIL % 88 %
[2016-09-03] MEDS ORDERED: LEVOTHROID (SY25 MCG PO (13:10)
[2016-09-03] MEDS ORDERED: PREDNISONE20 MG PO (13:14)
[2016-09-03] MEDS ORDERED: OXYGEN M-15 INH (13:23)
[2016-10-14] MEDS ORDERED: LEVEMIR100 UNIT/1 SUB-Q (14:43)
[2016-10-14] MEDS ORDERED: ZESTRIL2.5 MG PO (14:44)
[2016-10-14] MEDS ORDERED: GLUCOPHAGE500 MG PO (14:49)
[2016-10-14] MEDS ORDERED: HUMALOG100 UNIT/1 (14:51)
[2016-10-14] MEDS ORDERED: XOPENEX INH ×2 (14:55→14:56)
[2016-10-19] MEDS ORDERED: LEVAQUIN 250 M250 MG PO (12:18)
[2016-10-19] MEDS ORDERED: PERCOCET 5-3251 EACH PO (12:18)
== END 2016-05-27 14:45 | DRG 291 ==
LOC: GMED 11:41 → GPCU 14:22
PROVIDERS: Emergency Medicine; Family Medicine; Internal Medicine Cardiovascular Disease; ADMIT Internal Medicine
PROC: 3E0F7GC Introduction of Other Therapeutic Substance into Respiratory Tract, Via Natural or Artificial Opening (ICD-10-PCS; principal; 2016-05-19)
PROC: B246ZZZ Ultrasonography of Right and Left Heart (ICD-10-PCS; 2016-05-20)
DX: I13.0 Hypertensive heart and chronic kidney disease with heart failure and stage 1 through stage 4 chronic kidney disease, or unspecified chronic kidney disease (principal); I50.33 Acute on chronic diastolic (congestive) heart failure; J96.21 Acute and chronic respiratory failure with hypoxia; J18.9 Pneumonia, unspecified organism; E44.0 Moderate protein-calorie malnutrition; N18.3 Chronic kidney disease, stage 3 (moderate); N39.0 Urinary tract infection, site not specified; I48.0 Paroxysmal atrial fibrillation; J96.22 Acute and chronic respiratory failure with hypercapnia; J44.1 Chronic obstructive pulmonary disease with (acute) exacerbation; D63.1 Anemia in chronic kidney disease; R74.0 Nonspecific elevation of levels of transaminase and lactic acid dehydrogenase [LDH]; Z66 Do not resuscitate; Z79.01 Long term (current) use of anticoagulants; B96.89 Other specified bacterial agents as the cause of diseases classified elsewhere; E78.5 Hyperlipidemia, unspecified; Z68.24 Body mass index [BMI] 24.0-24.9, adult
CPT/HCPCS: G0237; J1160; J1644; J1940; J1956; J2370; J2543; J2930; J3480; J7030; J7040; J7050; J7512; J7612

== ENCOUNTER → 2016-05-19 | Outpatient (CLI) | payer MEDICARE, OTHER ==
[~2016-05-19] MED LIST: AMIODARONE HCL400 MG PO; ATENOLOL50 MG PO; ATROVENT HFA12.9 G1 INH; ATROVENT I0.5 MG/2.5 INH; CARDIZEM CD180 MG PO; CARDIZEM120 MG PO; CITRACAL+D(315M1 TAB PO; CORDARONE,PACE200 MG PO; DIAMOX250 MG PO; DULCOLAX10 MG R; GLUCOPHAGE500 MG PO; HUMALOG100 UNIT/1; LASIX40 MG PO; LEVAQUIN 250 M250 MG PO; LEVEMIR100 UNIT/1 SUB-Q; LEVOTHROID (SY25 MCG PO; LIPITOR40 MG PO; LOPRESSOR25 MG PO; MILK OF MA400 MG/5 M PO; MIRALAX PO527 GM/BOT PO; OXYGEN M-15 INH; PERCOCET 5-3251 EACH PO; POTASSIUM CHLO10 ME1 PO; PREDNISONE20 MG PO; PROAIR HFA8.5 GM INH; SPECTRAVITE SE1 EACH PO; TYLENOL325 MG PO; XARELTO15 MG PO; XOPENEX INH; XOPENEX1.25 MG/3 INH; ZESTRIL2.5 MG PO
== END ==
LOC: LFPA 09:31
DX: I50.32 Chronic diastolic (congestive) heart failure (principal)

== ENCOUNTER → 2016-05-19 | Outpatient (CLI) | payer MEDICARE, OTHER | END | disposition disaster alternative care site (69) | LOC: GAMB 11:20 | DX: R06.9 Unspecified abnormalities of breathing (principal); J44.9 Chronic obstructive pulmonary disease, unspecified; I48.91 Unspecified atrial fibrillation; R06.2 Wheezing; Z79.899 Other long term (current) drug therapy | CPT/HCPCS: A0422; A0425 ==

== ENCOUNTER → 2016-06-15 | Outpatient (CLI) | payer MEDICARE, OTHER ==
[~2016-06-15] MED LIST changes: +AMIODARONE HCL400 MG PO; +ATROVENT HFA12.9 G1 INH; +ATROVENT I0.5 MG/2.5 INH; +CARDIZEM CD180 MG PO; +CARDIZEM120 MG PO; +CORDARONE,PACE200 MG PO; +DIAMOX250 MG PO; +DULCOLAX10 MG R; +GLUCOPHAGE500 MG PO; +HUMALOG100 UNIT/1; +LASIX40 MG PO; +LEVAQUIN 250 M250 MG PO; +LEVEMIR100 UNIT/1 SUB-Q; +LEVOTHROID (SY25 MCG PO; +LIPITOR40 MG PO; +LOPRESSOR25 MG PO; +MILK OF MA400 MG/5 M PO; +MIRALAX PO527 GM/BOT PO; +OXYGEN M-15 INH; +PERCOCET 5-3251 EACH PO; +POTASSIUM CHLO10 ME1 PO; +PREDNISONE20 MG PO; +PROAIR HFA8.5 GM INH; +TYLENOL325 MG PO; +XARELTO15 MG PO; +XOPENEX INH; +XOPENEX1.25 MG/3 INH; +ZESTRIL2.5 MG PO
[2016-06-15 13:40] LABS: BASOPHIL % 0.6 %; EOSINOPHIL # 0.2 K/uL (0.0-0.5); EOSINOPHIL % 4.1 %; HEMATOCRIT 34.5 % (33.0-46.0); HEMOGLOBIN 10.1 g/dL (10.0-15.0); IMMATURE GRANULOCYTE # 0.1 K/uL (0.0-0.3); LYMPHOCYTE # 1.1 K/uL (0.8-4.0); LYMPHOCYTE % 20.9 %; MCH 32.3 pg (27.0-34.0); MCHC 29.3 gm/dL (32.0-36.5); MCV 110.2 fl (83.0-98.0); MONOCYTE # 0.4 K/uL (0.0-1.0); MONOCYTE % 8.5 %; MPV 9.3 fl (9.4-12.4); NEUTROPHIL # (ANC) 3.3 K/uL (1.8-7.8); NEUTROPHIL % 64.9 %; NRBC % 0 /100WBC (0-0.00); RBC 3.13 M/uL (3.50-5.50); RDW-CV 14.8 % (11.9-14.6); WBC 5.1 K/uL (4.0-11.0)
[2016-06-15 13:49] LABS: ALBUMIN 3.2 gm/dL (3.5-5.0); BLOOD UREA NITROGEN 18 mg/dL (6-24); CALCIUM 8.9 mg/dL (8.5-10.5); CHLORIDE 100 mMol/L (96-110); CREATININE 0.8 mg/dL (0.5-1.1); ESTIMATED GFR (MDRD EQUATION) > 60; MAGNESIUM 2.2 mg/dL (1.8-2.6); SODIUM 141 mMol/L (135-145)
[2016-06-15 13:51] LABS: CO2 36 mMol/L (22-32)
[2016-06-15 13:54] LABS: PLATELET COUNT 222 K/uL (150-450)
== END ==
LOC: LCNC 13:33
PROVIDERS: Internal Medicine Interventional Cardiology
DX: R06.02 Shortness of breath (principal)

== ENCOUNTER 2016-06-16 03:19 | Inpatient (IN) | payer MEDICARE, OTHER ==
[~2016-06-16] VITALS: Ht 170.2 cm; Wt 67.4 kg
--- NOTE | ~2016-06-16 | DS ---
PATIENT'S NAME: ALLAN SANDERS [facility] AGE: 75 Y [address] ROOM: [address] [address] LOCATION: GPCU ADMIT DATE: 06/16/2016 Discharge Summary DISCHARGE DATE: 06/19/2016 FAMILY PHYSICIAN: Linda Hopson MD ATTENDING PHYSICIAN: Chaz Turner FINAL DIAGNOSES: 1. Chronic obstructive pulmonary disease exacerbation. 2. Chronic diastolic congestive heart failure, well compensated. 3. Lblpm-lu-mhqlbzj hypercapnic/hypoxic respiratory failure, resolved. 4. Atrial fibrillation, rate controlled. 5. Long-term anticoagulation. CONSULTATION: Palliative Care. PROCEDURES: None. REASON FOR ADMISSION: This is a 75-year-old female who is a resident of a correction. The patient presented with lethargy and shortness of breath. She was evaluated and was thought to have acute hypercapnic and hypoxic respiratory failure secondary to chronic obstructive pulmonary disease exacerbation. She was then admitted to [facility]. Please see Dr. Turner's admission H and P for further details. DIAGNOSTIC STUDIES: Serial ABGs were done on presentation, the patient's pCO2 was 96, pH of 7.24, pO2 of 79. The patient was placed on BiPAP immediately. Subsequently, her pCO2 declined to 74, and 2 days later after use of BiPAP, the patient's pCO2 was 58, pO2 of 59. Lactate was 0.5 on admission. ProBNP was 2311. Cardiac enzymes were normal. Serial CBCs were done. White count on admission was 8.3, was stable and was 7.3 at discharge. Hemoglobin, hematocrit, and platelet levels were within normal range. Serial BMPs were done. Electrolytes were within normal range. The patient needed potassium supplementation during this admission, potassium 3.4 at discharge and was supplemented prior to discharge. Kidney function tests were normal. Liver function tests were normal. Mag 2.2. UA showed moderate bacteria and 1+ mucus. Procalcitonin level less than 0.05. Chest x-ray was done on admission for hypoxia and showed cardiac silhouette prominent, perihilar and basilar interstitial opacities likely representing interstitial edema versus infiltrate was noted; this was worse on the right side with no focal infiltrate, pleural effusion, or pneumothorax identified. Chest x-ray was repeated on the day of discharge and showed interval resolution of interstitial opacities throughout both lungs. Since prior study, chronic appearing fibrotic changes were present bilaterally with no focal infiltrate, pleural effusion, or pneumothorax identified. Cardiomegaly was noted. PATIENT'S NAME: ALLAN SANDERS [facility] AGE: 75 Y [address] ROOM: [id number] [place], [place] [address] LOCATION: GPCU ADMIT DATE: 06/16/2016 Discharge Summary DISCHARGE DATE: 06/19/2016 FAMILY PHYSICIAN: Linda Hopson MD ATTENDING PHYSICIAN: Chaz Turner [facility] COURSE: This is a 75-year-old female with a history of COPD and repeated admissions to [facility]. The patient was found to have lethargy and shortness of breath. She was then transferred to [facility] from the correction. She was evaluated and was found to have acute hypercapnic hypoxic respiratory failure. The patient presented and an ABG was done immediately. The ABG showed hypercapnic respiratory failure with pCO2 in the 90s. She was immediately placed on BiPAP. The patient is a DNR/DNI. She was given breathing treatments during this admission. Over the course of next two days, the patient's altered mental status improved. She was much more alert and was normal and following all commands by the day of discharge. The patient required BiPAP at night during this admission. By the time of discharge, she was stable on 3 to 4 L of nasal cannula O2 which is her baseline. Her yyvqf-un-jwcpybx hypoxic hypercapnic respiratory failure resolved. The patient was thought to have COPD exacerbation. She was initially placed on IV antibiotic. She was placed on Zosyn and Levaquin, this was later discontinued and the patient was continued on Levaquin at the time of discharge. The patient was also given Solu-Medrol during this admission for COPD exacerbation. On the day of discharge, she was placed on a prednisone taper. The patient was ambulating in the hallway. She was tolerating p.o. Her altered mental status had resolved. She also has a history of diastolic CHF and was diuresed more than usual with Lasix IV during this admission. Her potassium was supplemented, subsequent to that the patient continued to do well. Chest x-ray was resolving and improving by the day of discharge. She continued to do well and was discharged to the correction in stable condition. When the patient had altered mental status on admission, the patient's son called from [place]. It was discussed with the patient's son that the patient is DNR/DNI. Her son who is also the medical power of associate attorney indicated that the patient may need to be placed on comfort cares. I mentioned to the son that the patient is DNR/DNI, but there was no indication to make her comfortable as she was making some progress and headway at that point of time with BiPAP. When the patient's altered mental status resolved, the patient indicated that she would not want to be placed on comfort cares. She stated that she would like to come back to the hospital for antibiotic treatments. She continues to be a DNR/DNI and would not want any aggressive treatment but would still like to be evaluated and managed for dyspnea and pneumonia and COPD exacerbation with IV medications. This was communicated to her son, Milton. Based on son's wishes, Palliative Care consult was done during this admission. Palliative Care team will follow up with the patient at the PATIENT'S NAME: ALLAN SANDERS [facility] AGE: 75 Y [address] ROOM: [address] [place] [id number] LOCATION: GPCU ADMIT DATE: 06/16/2016 Discharge Summary DISCHARGE DATE: 06/19/2016 FAMILY PHYSICIAN: Linda Hopson MD ATTENDING PHYSICIAN: Chaz Turner correction. The patient continued to do well. She was then discharged to the correction in stable condition and asked to follow up with her primary care physician. DISCHARGE INSTRUCTIONS: The patient was discharged to [facility] in stable condition. She was advised and recommended pulmonary rehab at discharge. Follow up with the primary care physician, Dr. Linda Hopson, in 3 to 4 days' time. Palliative Care to follow up with the patient at correction. The patient is a DO NOT RESUSCITATE/DO NOT INTUBATE. She is on a cardiac diet. Calorie count is not needed. She is not n.p.o. Weightbearing is as tolerated. Use walker for assistance. PT and OT to evaluate and treat as indicated. O2 as needed to keep saturations 88% to 95%. The patient currently uses 3 to 4 L O2 on nasal cannula at all times. CBC and BMP at followup with PCP. She does not have a urinary catheter. She may not have alcoholic beverages. Rehab potential is poor. Discharge potential poor. The patient and family are aware of condition and prognosis and were updated by me. May crush appropriate medications. DISCHARGE MEDICATIONS: 1. Diamox for metabolic alkalosis, 250 mg p.o. daily per home regimen. 2. Amiodarone 200 mg p.o. daily for atrial fibrillation, dose started on 06/19/2016. 3. Cardizem 120 mg p.o. q.h.s. for AFib. 4. Lipitor 40 mg p.o. daily for dyslipidemia. 5. Calcium citrate one tab p.o. b.i.d., supplement. 6. Cardizem 180 mg p.o. daily for AFib. 7. Lasix 40 mg p.o. daily for CHF. 8. Lopressor 12.5 mg p.o. b.i.d. for AFib. 9. Potassium chloride 20 mEq p.o. daily for CHF, PCP to manage based on BMP. 10. Levaquin 750 mg p.o. daily for 7 more days for COPD exacerbation, new medication. 11. Prednisone 20 mg p.o. b.i.d., stop date 06/21/2016, for COPD. 12. Prednisone 10 mg p.o. b.i.d., start on 06/22/2016 and stop on 06/24/2016, for COPD. 13. Prednisone 5 mg p.o. b.i.d., start on 06/25/2016 and stop on 06/27/2016, for COPD. 14. Prednisone 5 mg p.o. daily, start on 06/28/2016 and stop on 06/30/2016, for COPD. 15. Xarelto 20 mg p.o. daily for long-term anticoagulation for AFib. 16. Atrovent inhalation 1 vial inhalation 4 times daily for COPD. 17. Atrovent inhalation 1 vial inhalation q.4 hours p.r.n. dyspnea, for COPD. 18. Tylenol 650 mg p.o. q.4 hours p.r.n. pain/fever. 19. Dulcolax 10 mg rectally every 24 hours p.r.n. constipation. PATIENT'S NAME: ALLAN SANDERS [facility] AGE: 75 Y [address] ROOM: [address] [address] LOCATION: [facility] ADMIT DATE: 06/16/2016 Discharge Summary DISCHARGE DATE: 06/19/2016 FAMILY PHYSICIAN: Linda Hopson MD ATTENDING PHYSICIAN: Chaz Turner 20. Milk of magnesia 30 mL p.o. daily p.r.n. constipation. 21. Multivitamin 1 tablet p.o. daily, supplement. 22. MiraLAX 17 g p.o. b.i.d. for constipation. 23. Xopenex nebulizer 1 vial inhalation 4 times daily for COPD. 24. Xopenex nebulizer 1 vial inhalation every 4 hours p.r.n. for dyspnea, for COPD. This patient was managed by hospitalist team during this admission. SAFIA PATEL MD MT/modl /[id number] CC: Linda Hopson MD d: 06/20/16 0427 t: 07/06/16 2113, DISCHARGE SUMMARY
--- NOTE | ~2016-06-16 | ER ---
PATIENT'S NAME: ALLAN SANDERS [facility] AGE: 75 Y [address] ROOM: [address] [address] LOCATION: GPCU ADMIT DATE: 06/16/2016 ER/Outpatient Report DISCHARGE DATE: FAMILY PHYSICIAN: Linda Hopson MD ATTENDING PHYSICIAN: ADONAY SABILLON HISTORY: This is a 75-year-old female who was brought in from [facility] for shortness of breath and hypoxia. The patient has a history of severe COPD, for which she is normally on 4 L nasal cannula. She was reportedly saturating 60%, so they bumped her up to 5 and it went up to 70%. When EMS arrived, they gave her a DuoNeb and now she is currently saturating at 92%. The patient also had reportedly some shortness of breath and wheezing. She denies any chest pain though. No other complaints at this time. PAST MEDICAL HISTORY: Includes severe COPD, on 4 L nasal cannula 31/08; hypertension; history of CHF, diastolic; hyperlipidemia; recently diagnosed atrial fibrillation, currently on rate control with metoprolol and diltiazem and anticoagulated with Xarelto; history of nrcmo-sg-bmsbdha hypoxic and hypercapnic respiratory failure. SOCIAL HISTORY: Former cigarette smoker, quit about a month ago, but did smoke half a pack per day for the last 50 years. No drug or alcohol use. MEDICATIONS: Please see med list. ALLERGIES: PLEASE SEE MED LIST. REVIEW OF SYSTEMS: Reviewed by me and negative, with the exception of those discussed in HPI. PHYSICAL EXAMINATION: VITAL SIGNS: The patient is 5 feet 1 inch. She weighs 76.5 kilos. Blood pressure 123/78; heart rate 91, irregular; respiratory rate 26; temp is 96.4; saturating 95% on 4 L nasal cannula after DuoNeb. LUNGS: She has a patent airway. She has mildly labored breathing. She is tachypneic. She has some retractions as well. She is not pale or diaphoretic. She is nontoxic appearing. NEURO: She seems slightly lethargic, slow to answer questions. She knows her name, and she knows that she is in the hospital, but she does not know the date or the situation at this time. We gave her a GCS of 14, taking 1 off for eye opening. PATIENT'S NAME: ALLAN SANDERS [facility] AGE: 75 Y [address] ROOM: [address] [place], [place] [address] LOCATION: GPCU ADMIT DATE: 06/16/2016 ER/Outpatient Report DISCHARGE DATE: FAMILY PHYSICIAN: Linda Hopson MD ATTENDING PHYSICIAN: ADONAY SABILLON NECK: Her throat is clear. She has no cervical lymphadenopathy. HEART: Her heart rate is ranging between the 70s and 90s at this time, it is irregular. Lungs sounds are diminished bilaterally. She has wheezing in the right upper lobe as well. Very diminished breath sounds all over, but especially bilateral bases. ABDOMEN: She is thin, soft, nontender, and nondistended. EXTREMITIES: She has 2+ pitting edema of the lower extremities. EMERGENCY ROOM COURSE: So, an IV was established by EMS. We shut off the fluids that they were giving her and gave her 125 mg of Solu-Medrol. We also gave her 2 DuoNebs here. We checked an ABG as well as some blood work. The chest x-ray on my view looks maybe mild pulmonary edema, some atelectasis at the right base as well. We checked some blood work including a CBC, which showed a white count of 8.3, H and H of 10.2/35, platelets are 215, no shift. Her proBNP was elevated at 2311. Her CMS shows a sodium 142, potassium 4.1, chloride 100, CO2 36, anion gap is 10, glucose 209, BUN is 21. Creatinine is 1. Total bilirubin is 0.3. Alkaline phosphatase is 113, AST 24, ALT 43, GFR is 54. Lactic acid is 0.5. Procalcitonin is less than 0.05. Her ABG shows a pH of 7.24, a pCO2 of 96, PO2 of 79, a bicarb of 41, base excess of 10. After the results of this ABG and given how lethargic she is, we put her on BiPAP, and the patient seemed to tolerate it quite well. Given how lethargic she is and this need of BiPAP to blow off CO2, we will be admitting her to the hospital. I discussed this with Dr. Sabillon, who is the hospitalist on today. He kindly accepted the patient. Her primary is Dr. Hopson of [facility]. The patient admitted to the PCU in guarded condition. IMPRESSION: Hypercarbic respiratory failure. MD KIMBERLI JONES/isabel /[id number] d: 06/16/16 1350 t: 07/15/16 1101, OUTPATIENT REPORT
--- NOTE | ~2016-06-16 | CON ---
PATIENT'S NAME: ALLAN SANDERS [facility] AGE: 75 Y [address] ROOM: [address] [place] [id number] LOCATION: GPCU ADMIT DATE: 06/16/2016 Consultation DISCHARGE DATE: FAMILY PHYSICIAN: Linda Hopson MD ATTENDING PHYSICIAN: ADONAY SABILLON DATE OF CONSULTATION: 06/18/2016 REFERRING PHYSICIAN: Gordon Joseph MD PALLIATIVE CARE CONSULT. LOCATION: [place] [address]. This is a palliative care referral for long-term goals of care. HISTORY OF PRESENT ILLNESS: This 75-year-old frail female was admitted from [facility] on 06/16/2016 with lethargy and increasing shortness of breath. The patient had recently been in the hospital in April and May and recently dismissed on 06/02/2016. She recently has a weight gain of about 18 pounds, increasing shortness of breath, becoming very sleepy and was found to have her saturations in the 60s on 4 L, was transferred to the [facility] for higher level of care. She was put on the BiPAP, is currently off the BiPAP on oxygen 4 L. Feeling much better. Denies any knee pain. No shortness of breath at rest. Tires easily. Falls asleep easily. Has an extensive history of severe COPD. PAST MEDICAL HISTORY: Very severe COPD on 3 to 4 L oxygen 31/08; hypertension; chronic diastolic heart failure, last EF was 50% to 55% with moderate pulmonary hypertension; hyperlipidemia; reported history of multiple sclerosis, states she has had for about 50 years?, does not take medicine for it, just controls with a gluten- free diet; most recent cardiac catheterization is on October 19, 2015, revealing a nonobstructive coronary artery disease; left ventricular ejection fraction was 75%; paroxysmal atrial fibrillation with NOAC, rate controlled with beta-francisco and calcium channel francisco. ALLERGIES: NO KNOWN ALLERGIES. CURRENT MEDICATIONS: 1. Levofloxacin 1000 mg p.o. 2. Furosemide mg daily. 3. Amiodarone 200 mg daily. PATIENT'S NAME: ALLAN SANDERS [facility] AGE: 75 Y [address] ROOM: [address] [place] [address] LOCATION: GPCU ADMIT DATE: 06/16/2016 Consultation DISCHARGE DATE: FAMILY PHYSICIAN: Linda Hopson MD ATTENDING PHYSICIAN: ADONAY SABILLON 4. Ipratropium bromide every 6 hours inhalations. 5. Xopenex 1.25 inhalations every 6 hours. 6. Diltiazem 125 mg at bedtime. 7. Atorvastatin 40 mg at bedtime. 8. Xarelto 20 mg daily. 9. Potassium chloride 20 mEq daily. 10. MiraLAX 17 g b.i.d. 11. Multivitamin daily. 12. Metoprolol tartrate 12.5 mg b.i.d. 13. Diltiazem HCl 180 mg daily. 14. Calcium citrate with vitamin D 1 tab b.i.d. 15. Diamox 250 mg daily. 16. Bisacodyl 10 mg suppository p.r.n. 17. Acetaminophen 650 mg every 4 hours p.r.n. pain or fever. 18. Prednisone 5 mg daily x3 doses. 19. Prednisone 5 mg b.i.d. x6 doses and prednisone 20 mg x6 doses. SOCIAL HISTORY: The patient is , has 2 sons, had a daughter who . She is a former smoker, half a pack a day for 45 to 50 years, quit about a month ago. Denies any alcohol or illicit drug use. FAMILY HISTORY: Diabetes, hypertension, coronary artery disease, mother had osteoarthritis. Mother at the age 99, father at the age of 90. SURGICAL HISTORY: Had a vein stripping and tonsillectomy. REVIEW OF SYSTEMS: A complete review of systems was done and is negative except as mentioned in HPI and listed below: MUSCULOSKELETAL: Denies any pain or discomfort. Increasing weakness and fatigue. Walks with a walker. Unable to walk very far distances. PHYSICAL EXAMINATION: GENERAL: This is a 75-year-old, frail, cachectic female. VITAL SIGNS: Temp 97.9, pulse 90, respirations 20, blood pressure 114/57, and O2 saturation is 95% on oxygen 3 L. GENERAL: Alert and oriented, sitting up in chair in no acute distress. SKIN: Warm and dry. Color pale. HEENT: Head normocephalic and atraumatic. Sclerae are nonicteric. Conjunctivae are pale pink. Mouth is pink and moist without exudate. LYMPH: No cervical adenopathy or thyromegaly. PATIENT'S NAME: KRAFT, ALLAN F [facility] AGE: 75 Y [address] ROOM: [place] [address] LOCATION: GPCU ADMIT DATE: 06/16/2016 Consultation DISCHARGE DATE: FAMILY PHYSICIAN: Linda Hopson MD ATTENDING PHYSICIAN: ADONAY SABILLON RESPIRATORY: Clear to auscultation bilaterally. Breath sounds are even and regular throughout. CARDIAC: S1 and S2 without murmurs or bruits. 2 to 3+ lower extremity edema from knees to ankels and is shiny. ABDOMEN: Soft, nontender. Positive bowel tones. No hepatosplenomegaly. NEUROLOGICAL: Grossly intact. No focal deficits. MUSCULOSKELETAL: Appropriate range of motion in upper and lower extremity. Decreased strength in lower extremities. EXTREMITIES: No cyanosis or deformities. Palliative performance scale is 50%, mainly sitting and lying, unable to do most activity. Considerable assistance needed. Intake is normal. Conscious level is full. IMPRESSION: Weakness and fatigue and dyspnea with exertion. PLAN: 1. Met with the patient. Discussed overall chronic conditions, heart failure, severe COPD, frequent re-admissions, answered questions on advancing COPD and heart failure and MS. The patient has a fair understanding of condition. 2. Code status and advance directive. The patient is currently do not resuscitate. A copy of do not resuscitate form is on the chart. Discussed advanced directive. The patient does think she does have an advance directive. Did call [facility] and they will fax us a copy of advance directive. She states that Deepak is her medical power of sports attorney. Discussed the POLST form (Physician's Order for Life- Sustaining Treatment) form and patient's wishes as she were to decline as disease progresses. She states that she has talked with Deepak on her wishes. She would still want to come back to the hospital for treatment for exacerbation of her COPD, but does not want a CPR or ventilator. She would like to think about possibly filling out the POLST form. She thinks maybe she has filled one at Dr. Hopson's office. I will check with them Dr. Hopson's office to see if the POLST form has been completed. I will check back with patient tomorrow to see if she wants to complete one. SHORT-TERM GOALS: 1. To continue with treatment. 2. To go back to [facility] tomorrow. 3. To continue increasing strength, is open to cardiac and pulmonary rehab, would like eventually to try to get to an assisted living [place]. She has a friend who lives there. If her heart and lung diseases allow for to improve. We will continue to support the patient, could see patient, PATIENT'S NAME: ALLAN SANDERS [facility] AGE: 75 Y [address] ROOM: [place] [address] LOCATION: GPCU ADMIT DATE: 06/16/2016 Consultation DISCHARGE DATE: FAMILY PHYSICIAN: Linda Hopson MD ATTENDING PHYSICIAN: ADONAY SABILLON and follow up on an outpatient basis for POLST at [facility]. Total time was 65 minutes with 55 minutes for counseling, coordination of care and education on goals of care, hospice and advanced heart failure and COPD. Thank you for allowing me to assist this patient. RACHID CLEMENTE, SHAQUILLE FOR MD PANKAJ CAVANAUGH/modl /[id number] CC: Dr Hopson [facility] [place] d: 06/19/16 0045 t: 06/25/16 1449, CONSULTATION REPORT
--- NOTE | ~2016-06-16 | HP ---
PATIENT'S NAME: ALLAN SANDERS [facility] AGE: 75 Y [address] ROOM: [place] [address] [facility] ADMIT DATE: 06/16/2016 History & Physical DISCHARGE DATE: FAMILY PHYSICIAN: Linda Hopson MD ATTENDING PHYSICIAN: ADONAY SABILLON DATE OF SERVICE: ADDENDUM: Addendum to the history and physical dictated by Dr. Sabillon earlier on June 16, 2016. The addendum is about her DVT prophylaxis: The patient is already on NOAC. Therefore, she does not require any additional pharmacological prophylaxis. I had mentioned Lovenox on the previous dictation on the initial history and physical. This is addendum to clarify that the subcu Lovenox will not be given, given that the patient is already on NOAC. For now, we will continue the NOAC. For further plan of care, refer to the initial history and physical dictated on June 16, 2016. ADONAY SABILLON MD CC/modl /[id number] D: [id number] T: [id number] HISTORY & PHYSICAL
--- NOTE | ~2016-06-16 | HP ---
PATIENT'S NAME: ALLAN SANDERS [facility] AGE: 75 Y [address] ROOM: [address] [address] LOCATION: GPCU ADMIT DATE: 06/16/2016 History & Physical DISCHARGE DATE: FAMILY PHYSICIAN: Linda Hopson MD ATTENDING PHYSICIAN: ADONAY SABILLON DATE OF SERVICE: CHIEF COMPLAINT: Lethargy and shortness of breath. HISTORY OF PRESENT ILLNESS: This is a 75-year-old penitentiary female resident from [place] who is a poor historian and I called the penitentiary nurse, who had been taking care of the patient, and I gathered history from the patient to the most I could and also from the nurse taking care of her in the penitentiary. The story is that recently, not clear for how long, the patient has been having weight gain around 18 pounds, roughly since mid May 2016. Today, in accountant bookkeeper hours around 2:30 a.m., when the nurse went back to the room to check on the patient, the patient was complaining of shortness of breath and the patient was found to be tachypneic and also was also found to be sleepy and drowsy. Her oxygen saturation was 60% on 4 L nasal cannula and was increased to 5 L nasal cannula and saturation barely improved to 70%. She was still tachypneic in the mid 30s. The patient was also wheezing according to the nurse in penitentiary. The patient got 1 dose of DuoNeb nebulization and the patient was sent over here to the emergency room in our hospital for evaluation. Upon further questioning, the patient denies any chest pain or any palpitation or cough or any fever or chills or any urinary frequency, urgency, or dysuria. Currently, since the patient came to the emergency room downstairs, the patient was put on BiPAP. 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 This was done on 4 L of nasal cannula. Looking back at her previous hospitalization her pCO2 from ABG from the last admission in May 2016 usually runs in the 70s. The patient is also a chronic CO2 retainer given that she chronically has metabolic alkalosis secondary due to the COPD from the primary respiratory acidosis. Her bicarbonate in the [employer] showed that she runs in her 35-40. REVIEW OF SYSTEMS: As mentioned in the history of present illness. All other system review are negative except what is mentioned in the history of present illness. PAST MEDICAL HISTORY: 1. Very severe COPD, on 3-4 L nasal cannula 31/08. 2. Hypertension. PATIENT'S NAME: ALLAN SANDERS [facility] AGE: 75 Y [address] ROOM: [id number] [place], [place] [address] LOCATION: GPCU ADMIT DATE: 06/16/2016 History & Physical DISCHARGE DATE: FAMILY PHYSICIAN: Linda Hopson MD ATTENDING PHYSICIAN: ADONAY SABILLON 3. Chronic diastolic heart failure. The most recent echo was transthoracic on May 20, 2016. At that time, EF was 50% to 55% with moderate pulmonary hypertension of pulmonary pressure at 54 mm reamer. 4. Hyperlipidemia. 5. Reported history of multiple sclerosis, but details are not clear. 6. Most recent cardiac catheterization was done in October 19, 2015. At that time, it showed nonobstructive coronary artery disease. Normal left ventricular ejection fraction with 75%. 7. Paroxysmal atrial fibrillation, on NOAC and rate controlled with beta- francisco and calcium channel francisco. ALLERGIES: NO KNOWN DRUG ALLERGY ACCORDING TO THE MEDICAL RECORDS. HOME MEDICATIONS: Will be reconciled and it will be addressed by the attending physician once the medication list is ready. SOCIAL HISTORY: The patient was a former cigarette smoker. She quit roughly one month ago. She used to smoke about half pack per day for the last 45-50 years on and off. The patient denies any alcohol or any illegal drug use. FAMILY HISTORY: Father had diabetes, hypertension, and coronary artery disease, but she could not remember all the details. Mother had osteoarthritis, but could not remember any other past medical history in her mother. PAST SURGICAL HISTORY: The patient could not remember any. PHYSICAL EXAMINATION: VITAL SIGNS: At the time of my dictation, temperature 98, blood pressure 116/80, MAP of 90, heart rate 73, and saturation 92% on BiPAP setting of 14/7 with a 40% FiO2 and respiration rate is in 18. GENERAL APPEARANCE: The patient looks comfortable right now. Alert and oriented x3. Currently, does not seem to be in acute distress. HEENT: Pupils are equally round and reactive to light. Extraocular muscles intact. Anicteric sclerae. Nasal turbinates are normal bilaterally. Moist oral mucosa. No oral thrush. NECK: No cervical lymphadenopathy and no neck stiffness. JVD difficult to be assessed. CARDIOVASCULAR: Irregularly irregular rate and rhythm. No murmur, no rubs, no gallops. RESPIRATORY: Decreased breath sounds diffusely. No obvious wheezing, PATIENT'S NAME: ALLAN SANDERS [facility] AGE: 75 Y [address] ROOM: [id number] [place], [place] [address] [facility] ADMIT DATE: 06/16/2016 History & Physical DISCHARGE DATE: FAMILY PHYSICIAN: Linda Hopson MD ATTENDING PHYSICIAN: ADONAY SABILLON rhonchi, rales, or crackles. ABDOMEN: Soft, nontender, nondistended, normal bowel sounds. No hepatosplenomegaly. No palpable mass. Bowel sounds are present. EXTREMITIES: Bilateral pitting edema in bilateral lower extremities. NEUROLOGICAL: Grossly nonfocal. SKIN: Varicose veins in bilateral lower extremities: No cyanosis. No ulcer. MUSCULOSKELETAL: No joint pain. No muscle pain. Range of motion intact. LABORATORY DATA: ABG on 4 L nasal cannula on arrival here showed pH of 7.24, pCO2 96, PO2 79, bicarbonate 41.1, saturation 93%. Lactic acid 0.5, proBNP 2311. Troponin: CPK and CK-MB are pending. White blood cells 8.3, hemoglobin 10.2, hematocrit 35, MCV 111.1, platelets 215. Glucose 209, BUN 21, creatinine 1.0. Sodium 142, potassium 4.1, chloride 100, CO2 36, calcium 8.6. Total protein 7.1, albumin 3.1, AST 24, ALT 43, alkaline phosphatase 113, total bilirubin 0.3, magnesium 2.2. GFR 54. Procalcitonin less than 0.05. IMAGING STUDIES: EKG is pending. Chest x-ray on admission, the official reading is pending based on my review. Looks very similar to the last chest x-ray back on May 19, 2016. Official reading is pending. At that time, the x-ray was read as patchy bibasilar opacities which could reflect atelectasis or infiltrate along with chronic changes. Also evidence of some pleural thickening or small volume of pleural fluid in the lower left and in the right hemithorax. COPD changes with fibrosis and scarring. ASSESSMENT AND PLAN: 1. 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 Please follow up with official reading of the chest x ray in the morning. I will give her one dose of IV Lasix 40 mg one right now provided that systolic blood pressure is more than 100. Her potassium is at 4.1 on admission and she will be getting IV Lasix, potassium, when will we go low and in the setting of atrial fibrillation, the goal is to keep the potassium more than 4 and magnesium more than 2. Therefore, I will give her one dose of IV potassium chloride 20 mEq, around 10 mEq over an hour, so total of 2 hours. She is on BiPAP. Therefore, I will not give her anything p.o. for now. Fluid restriction to 1.02 L per day for now, and also daily weight. The patient is not urinary incontinent. Therefore, Padron could be placed if the patient is incontinent and requires strict urinary output monitoring. I will not repeat the echo because she had a recent one in May 2016 last PATIENT'S NAME: ALLAN SANDERS [facility] AGE: 75 Y [address] ROOM: [place] [address] [facility] ADMIT DATE: 06/16/2016 History & Physical DISCHARGE DATE: FAMILY PHYSICIAN: Linda Hopson MD ATTENDING PHYSICIAN: ADONAY SABILLON admission. I will check one set of cardiac enzyme and keep cycling if it is high. EKG is pending. She has a history of paroxysmal atrial fibrillation. I would not be surprised if the EKGs still show paroxysmal atrial fibrillation. She does take NOAC at home for anticoagulation. She is also on rate control with amiodarone and beta francisco and calcium channel francisco. The official list of the medication will be reconciled by the medical by the staff and will be addressed by the MD once the medication list is ready. 2. Regarding her chronic obstructive pulmonary disease exacerbation: Less likely has pneumonia at the moment given that the patient does not have any cough, fever, chills, or leukocytosis, and procalcitonin was also normal. Per guideline for the chronic obstructive pulmonary disease exacerbation, I will give her p.o. prednisone and also IV azithromycin for 5 days per chronic obstructive pulmonary disease exacerbation protocol and also nebulization. I will give her Xopenex plus Atrovent and also Xopenex p.r.n. per RT for RSS. Further plan depends on clinical course. I will check her ABG again in 4 hours, which will be 8 o'clock in the morning today. 3. Regarding her history of paroxysmal atrial fibrillation: Home medication currently is being reconciled. It will be addressed by the medical staff once the medication list is ready. 4. Regarding her hypertension: Medications currently is being reconciled. It will be addressed by the medical staff once it is ready. 5. Hyperlipidemia: Currently medication list is being reconciled. It will be addressed by the medical staff once the medication list is ready. 6. Deep vein thrombosis prophylaxis: The patient will be getting Lovenox subcu. CODE STATUS: She is a DNR/DNI. Time spent on the day of admission in care is 45 minutes including chart review, interviewing the patient, examining the patient, getting history from the penitentiary staff to the nurse who was taking care of her back in penitentiary, addressing all the questions and concerns the patient had, and I went over the plan of care in detail with the nurses and the patient. The patient is in agreement with the plan and currently does not have any more questions. Further plan of care will depend on her clinical course. PATIENT'S NAME: ALLAN SANDERS [facility] AGE: 75 Y [address] ROOM: [place] [address] LOCATION: GPCU ADMIT DATE: 06/16/2016 History & Physical DISCHARGE DATE: FAMILY PHYSICIAN: Linda Hopson MD ATTENDING PHYSICIAN: ADONAY SABILLON MD CC/modl /[id number] D: [id number] T: [id number] HISTORY & PHYSICAL
[~2016-06-16 03:19] MED LIST changes: -AMIODARONE HCL400 MG PO; -ATROVENT I0.5 MG/2.5 INH; -CARDIZEM CD180 MG PO; -CARDIZEM120 MG PO; -CORDARONE,PACE200 MG PO; -DIAMOX250 MG PO; -DULCOLAX10 MG R; -GLUCOPHAGE500 MG PO; -HUMALOG100 UNIT/1; -LASIX40 MG PO; -LEVAQUIN 250 M250 MG PO; -LEVEMIR100 UNIT/1 SUB-Q; -LEVOTHROID (SY25 MCG PO; -LOPRESSOR25 MG PO; -MILK OF MA400 MG/5 M PO; -MIRALAX PO527 GM/BOT PO; -OXYGEN M-15 INH; -PERCOCET 5-3251 EACH PO; -POTASSIUM CHLO10 ME1 PO; -PREDNISONE20 MG PO; -XARELTO15 MG PO; -XOPENEX INH; -XOPENEX1.25 MG/3 INH; -ZESTRIL2.5 MG PO
[2016-06-16 03:52] LABS: BICARBONATE 41.1 mmol/L (18.0-23.0); LACTATE 0.5 mEq/L (0.50-1.60)
[2016-06-16 03:58] LABS: PCO2 96 mmHg (35-45); PO2 79 mmHg (80-90)
[2016-06-16 04:25] LABS: BASOPHIL % 0.4 %; EOSINOPHIL # 0.1 K/uL (0.0-0.5); EOSINOPHIL % 1.1 %; HEMOGLOBIN 10.2 g/dL (10.0-15.0); IMMATURE GRANULOCYTE # 0.1 K/uL (0.0-0.3); IMMATURE GRANULOCYTE % 1.3 %; LYMPHOCYTE # 0.7 K/uL (0.8-4.0); LYMPHOCYTE % 8.6 %; MCH 32.4 pg (27.0-34.0); MCHC 29.1 gm/dL (32.0-36.5); MCV 111.1 fl (83.0-98.0); MONOCYTE # 0.7 K/uL (0.0-1.0); MONOCYTE % 8.2 %; MPV 9.3 fl (9.4-12.4); NEUTROPHIL # (ANC) 6.7 K/uL (1.8-7.8); NEUTROPHIL % 80.4 %; NRBC % 0 /100WBC (0-0.00); PLATELET COUNT 215 K/uL (150-450); RBC 3.15 M/uL (3.50-5.50); RDW-CV 15.1 % (11.9-14.6); WBC 8.3 K/uL (4.0-11.0)
[2016-06-16 04:44] LABS: ALBUMIN 3.1 gm/dL (3.5-5.0); CALCIUM 8.6 mg/dL (8.5-10.5); POTASSIUM 4.1 mMol/L (3.7-5.1); TOTAL PROTEIN 7.1 g/dL (6.0-8.4)
[2016-06-16 04:46] LABS: ANION GAP 10.1 (10.0-19.0); TOTAL BILIRUBIN 0.3 mg/dL (0.0-1.5)
[2016-06-16 06:25] LABS: CPK 36 IU/L (21-215)
[2016-06-16 07:43] LABS: BICARBONATE 39.9 mmol/L (18.0-23.0)
[2016-06-16 07:52] LABS: PCO2 74 mmHg (35-45); PO2 63 mmHg (80-90)
[2016-06-16] MEDS ORDERED: AMIODARONE HCL400 MG PO (09:02)
[2016-06-16] MEDS ORDERED: DIAMOX250 MG PO (09:04)
[2016-06-16] MEDS ORDERED: CARDIZEM CD180 MG PO (09:06)
[2016-06-16] MEDS ORDERED: CORDARONE,PACE200 MG PO (09:07)
[2016-06-16] MEDS ORDERED: LASIX40 MG PO (09:09)
[2016-06-16] MEDS ORDERED: CARDIZEM120 MG PO (09:09)
[2016-06-16] MEDS ORDERED: POTASSIUM CHLO10 ME1 PO (09:11)
[2016-06-16] MEDS ORDERED: XARELTO15 MG PO (09:12)
[2016-06-16] MEDS ORDERED: CITRACAL+D(315M1 TAB PO (09:13)
[2016-06-16] MEDS ORDERED: LOPRESSOR25 MG PO (09:14)
[2016-06-16] MEDS ORDERED: MIRALAX PO527 GM/BOT PO (09:15)
[2016-06-16] MEDS ORDERED: MILK OF MA400 MG/5 M PO (09:16)
[2016-06-16] MEDS ORDERED: DULCOLAX10 MG R (09:16)
[2016-06-16] MEDS ORDERED: ATROVENT I0.5 MG/2.5 INH ×2 (09:29)
[2016-06-16] MEDS ORDERED: XOPENEX1.25 MG/3 INH ×2 (09:31→09:32)
[2016-06-17 04:37] LABS: HEMATOCRIT 31.8 % (33.0-46.0); HEMOGLOBIN 9.7 g/dL (10.0-15.0); MCH 31.9 pg (27.0-34.0); MCHC 30.5 gm/dL (32.0-36.5); MPV 9.5 fl (9.4-12.4); PLATELET COUNT 239 K/uL (150-450); RBC 3.04 M/uL (3.50-5.50); WBC 4.5 K/uL (4.0-11.0)
[2016-06-17 04:42] LABS: MCV 104.6 fl (83.0-98.0)
[2016-06-17 04:51] LABS: ANION GAP 10.5 (10.0-19.0); BLOOD UREA NITROGEN 21 mg/dL (6-24); CALCIUM 8.7 mg/dL (8.5-10.5); CHLORIDE 100 mMol/L (96-110); CREATININE 0.8 mg/dL (0.5-1.1); ESTIMATED GFR (MDRD EQUATION) > 60; POTASSIUM 3.5 mMol/L (3.7-5.1); SODIUM 142 mMol/L (135-145)
[2016-06-17 04:52] LABS: CO2 35 mMol/L (22-32)
[2016-06-17 06:14] LABS: ABSOLUTE NEUTROPHIL CT (ANC) 4.1 K/uL (1.8-7.8); BANDED NEUTROPHILS % 1 %; LYMPHOCYTE # 0.3 K/uL (0.8-4.0); LYMPHOCYTE % 7 %; SEGMENTED NEUTROPHIL # 4.1 K/uL (1.8-7.8); SEGMENTED NEUTROPHIL % 90 %
[2016-06-17 07:45] LABS: BILIRUBIN URINE NEGATIVE (NEGATIVE); BLOOD URINE 25 /UL (NEGATIVE); GLUCOSE URINE NEGATIVE (NEGATIVE); KETONE URINE NEGATIVE (NEGATIVE); LEUKOCYTES URINE NEGATIVE /UL (NEGATIVE); NITRITE URINE NEGATIVE (NEGATIVE); PROTEIN URINE NEGATIVE (NEGATIVE); UROBILINOGEN URINE NORMAL (NORMAL)
[2016-06-17 07:55] LABS: COLOR URINE YELLOW (YELLOW); TURBIDITY URINE 1+ (CLEAR)
[2016-06-17 08:16] LABS: BACTERIA URINE MODERATE (NEGATIVE); MUCUS URINE 1+ (NEGATIVE); RBC URINE 0-2 #/HPF (NEGATIVE)
[2016-06-18 03:46] LABS: HEMATOCRIT 32.6 % (33.0-46.0); MCH 32.4 pg (27.0-34.0); MCHC 30.7 gm/dL (32.0-36.5); MCV 105.5 fl (83.0-98.0); MPV 9.6 fl (9.4-12.4); PLATELET COUNT 255 K/uL (150-450); RBC 3.09 M/uL (3.50-5.50); RDW-CV 15.7 % (11.9-14.6); WBC 9.3 K/uL (4.0-11.0)
[2016-06-18 03:59] LABS: ANION GAP 10.4 (10.0-19.0); CALCIUM 8.5 mg/dL (8.5-10.5); POTASSIUM 3.4 mMol/L (3.7-5.1)
[2016-06-18 04:22] LABS: ABSOLUTE NEUTROPHIL CT (ANC) 8.8 K/uL (1.8-7.8); LYMPHOCYTE # 0.2 K/uL (0.8-4.0); LYMPHOCYTE % 2 %; MONOCYTE # 0.3 K/uL (0.0-1.0); SEGMENTED NEUTROPHIL # 8.8 K/uL (1.8-7.8); SEGMENTED NEUTROPHIL % 95 %
[2016-06-18 05:47] LABS: BICARBONATE 41.3 mmol/L (18.0-23.0); PO2 59 mmHg (80-90)
[2016-06-18 05:48] LABS: PCO2 58 mmHg (35-45)
[2016-06-19 05:40] LABS: HEMATOCRIT 35.7 % (33.0-46.0); MCH 32.4 pg (27.0-34.0); MCHC 30.8 gm/dL (32.0-36.5); MPV 9.4 fl (9.4-12.4); PLATELET COUNT 276 K/uL (150-450); RDW-CV 15.8 % (11.9-14.6); WBC 7.3 K/uL (4.0-11.0)
[2016-06-19 05:59] LABS: ANION GAP 13.4 (10.0-19.0); BLOOD UREA NITROGEN 24 mg/dL (6-24); CALCIUM 8.3 mg/dL (8.5-10.5); CHLORIDE 102 mMol/L (96-110); CO2 30 mMol/L (22-32); CREATININE 0.9 mg/dL (0.5-1.1); ESTIMATED GFR (MDRD EQUATION) > 60; POTASSIUM 3.4 mMol/L (3.7-5.1); SODIUM 142 mMol/L (135-145)
[2016-06-19 06:25] LABS: ABSOLUTE NEUTROPHIL CT (ANC) 6.7 K/uL (1.8-7.8); BANDED NEUTROPHIL # 0.6 K/uL (0.0-0.1); BANDED NEUTROPHILS % 8 %; LYMPHOCYTE # 0.4 K/uL (0.8-4.0); LYMPHOCYTE % 5 %; MONOCYTE # 0.2 K/uL (0.0-1.0); SEGMENTED NEUTROPHIL # 6.1 K/uL (1.8-7.8); SEGMENTED NEUTROPHIL % 84 %
[2016-09-03] MEDS ORDERED: LEVOTHROID (SY25 MCG PO (13:10)
[2016-09-03] MEDS ORDERED: PREDNISONE20 MG PO (13:14)
[2016-09-03] MEDS ORDERED: OXYGEN M-15 INH (13:23)
[2016-10-14] MEDS ORDERED: LEVEMIR100 UNIT/1 SUB-Q (14:43)
[2016-10-14] MEDS ORDERED: ZESTRIL2.5 MG PO (14:44)
[2016-10-14] MEDS ORDERED: GLUCOPHAGE500 MG PO (14:49)
[2016-10-14] MEDS ORDERED: HUMALOG100 UNIT/1 (14:51)
[2016-10-14] MEDS ORDERED: XOPENEX INH ×2 (14:55→14:56)
[2016-10-19] MEDS ORDERED: PERCOCET 5-3251 EACH PO (12:18)
[2016-10-19] MEDS ORDERED: LEVAQUIN 250 M250 MG PO (12:18)
== END 2016-06-19 12:49 | DRG 291 ==
LOC: GMED 03:19 → GPCU 05:16
PROVIDERS: Emergency Medicine; Family Medicine; ADMIT Internal Medicine
DX: I11.0 Hypertensive heart disease with heart failure (principal); J96.21 Acute and chronic respiratory failure with hypoxia; I48.0 Paroxysmal atrial fibrillation; J96.22 Acute and chronic respiratory failure with hypercapnia; J44.1 Chronic obstructive pulmonary disease with (acute) exacerbation; I50.33 Acute on chronic diastolic (congestive) heart failure; E78.5 Hyperlipidemia, unspecified; Z66 Do not resuscitate; Z79.01 Long term (current) use of anticoagulants
CPT/HCPCS: G0237; J0456; J1940; J1956; J2543; J2930; J3480; J7040; J7050; J7512; J7612

== ENCOUNTER → 2016-06-16 | Outpatient (CLI) | payer MEDICARE, OTHER | END | disposition disaster alternative care site (69) | LOC: GAMB 02:49 | DX: R06.9 Unspecified abnormalities of breathing (principal); J44.9 Chronic obstructive pulmonary disease, unspecified; I48.91 Unspecified atrial fibrillation; R09.02 Hypoxemia; R06.02 Shortness of breath; I10 Essential (primary) hypertension; Z79.899 Other long term (current) drug therapy | CPT/HCPCS: A0422; A0425; A0427; J7030 ==

== ENCOUNTER 2016-07-08 15:25 | Emergency (ER) | payer MEDICARE, OTHER ==
--- NOTE | ~2016-07-08 | ER ---
PATIENT'S NAME: ALLAN SANDERS [facility] AGE: 75 Y [address] ROOM: [place] [address] LOCATION: ED ADMIT DATE: 07/08/2016 ER/Outpatient Report DISCHARGE DATE: 07/08/2016 FAMILY PHYSICIAN: Linda Hopson MD ATTENDING PHYSICIAN: Deepak Ordaz Time of Arrival: 1525 hours. Time of Evaluation: 1527 hours. CHIEF COMPLAINT: Shortness of breath. HISTORY OF PRESENT ILLNESS: The patient is a 75-year-old female who presents to the emergency department today with a chief complaint of shortness of breath. She was seen initially by [facility] and was sent to the emergency department after further evaluation and treatment management. The patient was reported to have low oxygen saturations at [facility], although, she did not appear to be in significant respiratory distress. The patient has history of severe COPD and congestive heart failure. She has had some edema in her lower extremities. She does also have history of incontinence of urine for the past 2 days. She denies any cough, has not had fever. No chills. No nausea or vomiting. No diarrhea or constipation. Upon arrival here in the emergency department, the patient does report she has little bit of shortness of breath at this time. Denies any chest pain. 0/10 pain. PAST MEDICAL HISTORY: 1. Chronic obstructive pulmonary disease, requiring 4 L nasal cannula, 31/08. 2. Hypertension. 3. Chronic diastolic congestive heart failure with moderate pulmonary hypertension. 4. Dyslipidemia. 5. Questionable multiple sclerosis. 6. Paroxysmal atrial fibrillation. PAST SURGICAL HISTORY: None reported. SOCIAL HISTORY: The patient has 56+ years history of smoking. She quit 6 months ago. She denies any alcohol or illicit drug use. ALLERGIES: NO KNOWN DRUG ALLERGIES. PATIENT'S NAME: ALLAN SANDERS [facility] AGE: 75 Y [address] ROOM: [place] [address] LOCATION: ED ADMIT DATE: 07/08/2016 ER/Outpatient Report DISCHARGE DATE: 07/08/2016 FAMILY PHYSICIAN: Linda Hopson MD ATTENDING PHYSICIAN: Deepak Ordaz MEDICATIONS: Please see list. PRIMARY CARE DOCTOR: Linda Hopson MD. REVIEW OF SYSTEMS: All systems are reviewed by myself and are negative with the exception of those discussed in the HPI and past medical history. PHYSICAL EXAMINATION: VITAL SIGNS: Weight 68 kg, blood pressure 115/63, pulse 53, respiratory rate 20, temperature 96.0, and oxygen saturation 96% on 4 L nasal cannula. GENERAL: The patient is a 75-year-old female, who appears stated age in mild respiratory distress. HEENT: Normocephalic, atraumatic. Pupils are equal, round, and reactive to light. Mucous membranes are moist. NECK: Supple. There is no nuchal rigidity. CARDIOVASCULAR: Bradycardic. No rubs or gallops. LUNGS: Diminished diffusely. No wheezes, rales, or rhonchi. ABDOMEN: Soft, nontender, and nondistended. No rebound, rigidity, or guarding. MUSCULOSKELETAL: The patient moves all 4 extremities. SKIN: The patient does have 2+ pretibial edema in bilateral lower extremities. Otherwise warm and dry. LABORATORY DATA AND X-RAYS: Labs and x-rays are obtained. Chest x-ray is obtained, and it is reviewed by the radiologist. This shows stable severe COPD. There is no pneumonia. No acute CHF. ABG 7.36/70/90/40/11.3. Lactate is normal. CBC is unremarkable. PTT is 45, PT is 14.9, INR is 1.41, proBNP is 741, and Procalcitonin is less than 0.05. CMP is unremarkable except for CO2 of 37. LFTs are normal. CK, CK-MB, and troponin are normal. EKG is obtained, shows atrial fibrillation with a rate of 15, normal axis, no ST elevation, ST depression, T wave inversions are noted. Urinalysis, the patient is positive for nitrites, leucocytes are negative, 2 to 5 wbcs, and many bacteria. IMPRESSION: 1. Acute exacerbation of chronic obstructive pulmonary disease. 2. Dyspnea, resolved. 3. Atrial fibrillation, slow ventricular response. 4. Acute uncomplicated urinary tract infections. PATIENT'S NAME: ALLAN SANDERS [facility] AGE: 75 Y [address] ROOM: [place], [place] [address] LOCATION: ED ADMIT DATE: 07/08/2016 ER/Outpatient Report DISCHARGE DATE: 07/08/2016 FAMILY PHYSICIAN: Linda Hopson MD ATTENDING PHYSICIAN: Deepak Ordaz EMERGENCY DEPARTMENT COURSE: The patient was brought back to the examination room. Seen and evaluated by myself. IV is established. Laboratory analysis and imaging are obtained as described above. The patient is given a DuoNeb breathing treatment. She is given 125 mg of Solu-Medrol IV. The workup has returned. The patient is re- examined. Her lung exam, she does have air movement still diminished diffusely. She reports she feels 100 times better at this time. I have discussed the results of laboratory testing with the patient. The patient would like to go back to the [facility] at this time. I have contacted Dr. Wilkerson, who is on-call for [facility], and discussed the case with him. We will have the patient follow up with Dr. Hopson, the patient's primary care doctor. I have placed the patient on a steroid taper as well as Levaquin. snf discharge instructions are written as are our prescriptions. The patient is without further questions at this time. DISPOSITION: The patient is discharged to home in good condition. DO SILVER DAVALOS/modl /[id number] d: 07/09/16 1228 t: 07/13/16 0739, OUTPATIENT REPORT
[~2016-07-08 15:25] MED LIST changes: +AMIODARONE HCL400 MG PO; +ATROVENT I0.5 MG/2.5 INH; +CARDIZEM CD180 MG PO; +CARDIZEM120 MG PO; +CORDARONE,PACE200 MG PO; +DIAMOX250 MG PO; +DULCOLAX10 MG R; +LASIX40 MG PO; +LOPRESSOR25 MG PO; +MILK OF MA400 MG/5 M PO; +MIRALAX PO527 GM/BOT PO; +POTASSIUM CHLO10 ME1 PO; +XARELTO15 MG PO; +XOPENEX1.25 MG/3 INH
[2016-07-08 16:07] LABS: BASOPHIL % 0.4 %; EOSINOPHIL # 0.4 K/uL (0.0-0.5); EOSINOPHIL % 4.9 %; HEMOGLOBIN 10.9 g/dL (10.0-15.0); IMMATURE GRANULOCYTE # 0.1 K/uL (0.0-0.3); IMMATURE GRANULOCYTE % 0.6 %; LYMPHOCYTE % 12.2 %; MCH 32.4 pg (27.0-34.0); MCHC 30.3 gm/dL (32.0-36.5); MCV 107.1 fl (83.0-98.0); MONOCYTE # 0.8 K/uL (0.0-1.0); MONOCYTE % 9.6 %; MPV 10.7 fl (9.4-12.4); NEUTROPHIL # (ANC) 5.6 K/uL (1.8-7.8); NEUTROPHIL % 72.3 %; NRBC % 0 /100WBC (0-0.00); RBC 3.36 M/uL (3.50-5.50); RDW-CV 15.9 % (11.9-14.6); WBC 7.8 K/uL (4.0-11.0)
[2016-07-08 16:08] LABS: PLATELET COUNT 134 K/uL (150-450)
[2016-07-08 16:14] LABS: INR - (THERAPEUTIC) 1.41 (0.92-1.07); PROTIME 14.9 SECONDS (9.8-11.4)
[2016-07-08 16:15] LABS: PTT 45 SECONDS (25-32)
[2016-07-08 16:20] LABS: BICARBONATE 39.5 mmol/L (18.0-23.0); LACTATE 0.7 mEq/L (0.50-1.60)
[2016-07-08 16:26] LABS: PCO2 70 mmHg (35-45); PO2 90 mmHg (80-90)
[2016-07-08 16:31] LABS: ALBUMIN 3.3 gm/dL (3.5-5.0); ALK PHOS 102 IU/L (33-138); ALT 44 IU/L (12-78); AST 28 IU/L (10-40); BLOOD UREA NITROGEN 16 mg/dL (6-24); CALCIUM 8.6 mg/dL (8.5-10.5); CHLORIDE 102 mMol/L (96-110); CPK 45 IU/L (21-215); CREATININE 1.1 mg/dL (0.5-1.1); POTASSIUM 3.7 mMol/L (3.7-5.1); SODIUM 144 mMol/L (135-145); TOTAL PROTEIN 7.1 g/dL (6.0-8.4)
[2016-07-08 16:33] LABS: ANION GAP 8.7 (10.0-19.0); CO2 37 mMol/L (22-32); ESTIMATED GFR (MDRD EQUATION) 48; TOTAL BILIRUBIN 0.2 mg/dL (0.0-1.5)
[2016-07-08 17:00] LABS: BILIRUBIN URINE NEGATIVE (NEGATIVE); BLOOD URINE NEGATIVE /UL (NEGATIVE); COLOR URINE YELLOW (YELLOW); GLUCOSE URINE NEGATIVE (NEGATIVE); KETONE URINE NEGATIVE (NEGATIVE); LEUKOCYTES URINE NEGATIVE /UL (NEGATIVE); NITRITE URINE POSITIVE (NEGATIVE); PROTEIN URINE NEGATIVE (NEGATIVE); TURBIDITY URINE CLEAR (CLEAR); UROBILINOGEN URINE NORMAL (NORMAL)
[2016-07-08 17:10] LABS: RBC URINE 0-2 #/HPF (NEGATIVE)
[2016-07-08 17:11] LABS: AMORPHOUS URINE 2+ (NEGATIVE); BACTERIA URINE MANY (NEGATIVE)
[2016-09-03] MEDS ORDERED: LEVOTHROID (SY25 MCG PO (13:10)
[2016-09-03] MEDS ORDERED: PREDNISONE20 MG PO (13:14)
[2016-09-03] MEDS ORDERED: OXYGEN M-15 INH (13:23)
[2016-10-14] MEDS ORDERED: LEVEMIR100 UNIT/1 SUB-Q (14:43)
[2016-10-14] MEDS ORDERED: ZESTRIL2.5 MG PO (14:44)
[2016-10-14] MEDS ORDERED: GLUCOPHAGE500 MG PO (14:49)
[2016-10-14] MEDS ORDERED: HUMALOG100 UNIT/1 (14:51)
[2016-10-14] MEDS ORDERED: XOPENEX INH ×2 (14:55→14:56)
[2016-10-19] MEDS ORDERED: PERCOCET 5-3251 EACH PO (12:18)
[2016-10-19] MEDS ORDERED: LEVAQUIN 250 M250 MG PO (12:18)
== END 2016-07-08 19:00 | disposition disaster alternative care site (69) ==
LOC: GMED 15:25
PROVIDERS: Emergency Medicine
DX: J44.1 Chronic obstructive pulmonary disease with (acute) exacerbation (principal); I48.0 Paroxysmal atrial fibrillation; N39.0 Urinary tract infection, site not specified; I11.0 Hypertensive heart disease with heart failure; E78.5 Hyperlipidemia, unspecified; Z87.891 Personal history of nicotine dependence; I50.32 Chronic diastolic (congestive) heart failure
CPT/HCPCS: J2930

== ENCOUNTER → 2016-09-07 | Day surgery (SDC) | payer MEDICARE, OTHER ==
[~2016-09-07] MED LIST changes: +GLUCOPHAGE500 MG PO; +HUMALOG100 UNIT/1; +LEVAQUIN 250 M250 MG PO; +LEVEMIR100 UNIT/1 SUB-Q; +LEVOTHROID (SY25 MCG PO; +OXYGEN M-15 INH; +PERCOCET 5-3251 EACH PO; +PREDNISONE20 MG PO; +XOPENEX INH; +ZESTRIL2.5 MG PO
[2016-09-07 07:46] LABS: BASOPHIL % 0.2 %; EOSINOPHIL % 0.2 %; HEMATOCRIT 41.5 % (33.0-46.0); IMMATURE GRANULOCYTE # 0.2 K/uL (0.0-0.3); LYMPHOCYTE # 1.4 K/uL (0.8-4.0); LYMPHOCYTE % 7.1 %; MCH 32.7 pg (27.0-34.0); MCHC 31.3 gm/dL (32.0-36.5); MCV 104.5 fl (83.0-98.0); MONOCYTE # 1.3 K/uL (0.0-1.0); MONOCYTE % 6.9 %; NEUTROPHIL # (ANC) 16.3 K/uL (1.8-7.8); NEUTROPHIL % 84.6 %; NRBC % 0.2 /100WBC (0-0.00); RBC 3.97 M/uL (3.50-5.50); RDW-CV 16.7 % (11.9-14.6)
[2016-09-07 08:17] LABS: ANION GAP 14.9 (10.0-19.0); CREATININE 1.1 mg/dL (0.5-1.1); POTASSIUM 3.9 mMol/L (3.7-5.1); TOTAL BILIRUBIN 0.6 mg/dL (0.0-1.5); TOTAL PROTEIN 7.7 g/dL (6.0-8.4)
[2016-09-07 08:24] LABS: PLATELET COUNT 235 K/uL (150-450); WBC 19.3 K/uL (4.0-11.0)
== END | disposition disaster alternative care site (69) ==
LOC: GPOC 09-03 11:00 → GSDC 07:01 → GPOC 11:00
PROVIDERS: Urology
DX: N36.2 Urethral caruncle (principal); I10 Essential (primary) hypertension; J44.9 Chronic obstructive pulmonary disease, unspecified; E78.00 Pure hypercholesterolemia, unspecified; I48.91 Unspecified atrial fibrillation; Z53.8 Procedure and treatment not carried out for other reasons; Z79.01 Long term (current) use of anticoagulants; Z79.899 Other long term (current) drug therapy
CPT/HCPCS: J1956; J2001; J2405; J7120

== ENCOUNTER → 2016-10-19 | Day surgery (SDC) | payer MEDICARE, OTHER ==
[~2016-10-19] VITALS: Ht 170.2 cm; Wt 65.6 kg
--- NOTE | ~2016-10-19 | OR ---
PATIENT'S NAME: ALLAN SANDERS [facility] AGE: 76 Y [address] ROOM: [place] [address] [place]ATION: [facility] [place] ADMIT DATE: 10/19/2016 OR/Procedure Report DISCHARGE DATE: FAMILY PHYSICIAN: Linda Hopson MD ATTENDING PHYSICIAN: Rosalind Blackwood SURGEON: Rosalind Blackwood MD ASSEMBLER DC FIELD RING: DATE OF PROCEDURE: 10/19/2016 POSTOPERATIVE DIAGNOSIS: Urethral caruncle. POSTOPERATIVE DIAGNOSIS: Urethral caruncle. PROCEDURE PERFORMED: Excision of urethral caruncle. SURGEON: Rosalind Blackwood MD. ANESTHESIA: General. COMPLICATIONS: None. ESTIMATED BLOOD LOSS: Minimal. INDICATION FOR PROCEDURE: The patient is a 75-year-old female, who initially refers secondary to a urethral caruncle. The patient complained of bleeding and was noted to have a urethral caruncle on examination. DETAILS OF PROCEDURE: After informed consent was obtained, the patient was taken to the operating room. A general anesthetic was applied and she was placed in dorsal lithotomy position. The groin area was prepped and draped in normal sterile fashion. Next her urethral caruncle was identified, the edges grasped with forceps. A 3-0 chromic retention suture was placed in the mucosa at the edge of the caruncle. I then placed a 3-0 chromic suture at the lateral edge of the caruncle. The caruncle was then excised with scissors. Using the previously placed 3-0 chromic suture, the mucosa was reapproximated to the urethra in a running fashion. Following this, a 16-Frisian Padron catheter was placed. Antibiotic ointment was placed around the meatus. The patient tolerated her procedure well, was transferred to recovery room in good condition. ROSALIND BLACKWOOD MD PATIENT'S NAME: ALLAN SANDERS [facility] AGE: 76 Y [address] ROOM: [place] [address] LOCATION: [facility] [place] ADMIT DATE: 10/19/2016 OR/Procedure Report DISCHARGE DATE: FAMILY PHYSICIAN: Linda Hopson MD ATTENDING PHYSICIAN: Rosalind Blackwood/isabel /[id number] CC: Linda Hopson MD d: 10/19/16 2303 t: 10/20/16 1646, OPERATIVE SUMMARY
[2016-10-19 08:43] LABS: BASOPHIL # 0.1 K/uL (0.0-0.2); BASOPHIL % 0.7 %; EOSINOPHIL % 0.3 %; HEMATOCRIT 38.9 % (33.0-46.0); HEMOGLOBIN 12.1 g/dL (10.0-15.0); IMMATURE GRANULOCYTE # 0.5 K/uL (0.0-0.3); IMMATURE GRANULOCYTE % 4.5 %; LYMPHOCYTE # 2.1 K/uL (0.8-4.0); LYMPHOCYTE % 17.9 %; MCHC 31.1 gm/dL (32.0-36.5); MCV 102.9 fl (83.0-98.0); MONOCYTE # 0.9 K/uL (0.0-1.0); MPV 10.5 fl (9.4-12.4); NEUTROPHIL # (ANC) 8.1 K/uL (1.8-7.8); NEUTROPHIL % 68.6 %; NRBC % 0 /100WBC (0-0.00); PLATELET COUNT 241 K/uL (150-450); RBC 3.78 M/uL (3.50-5.50); RDW-CV 16.3 % (11.9-14.6); WBC 11.8 K/uL (4.0-11.0)
[2016-10-19 08:59] LABS: ALBUMIN 3.3 gm/dL (3.5-5.0); CALCIUM 8.4 mg/dL (8.5-10.5); CREATININE 1.2 mg/dL (0.5-1.1); TOTAL PROTEIN 6.7 g/dL (6.0-8.4)
[2016-10-19 09:04] LABS: ANION GAP 11.9 (10.0-19.0); POTASSIUM 3.9 mMol/L (3.7-5.1); TOTAL BILIRUBIN 0.3 mg/dL (0.0-1.5)
== END ==
LOC: GPOC 10-14 13:00 → GSDC 08:01 → GPOC 13:00
PROVIDERS: Urology
PROC: 0TBD0ZZ Excision of Urethra, Open Approach (ICD-10-PCS; principal; 2016-10-19)
DX: N36.8 Other specified disorders of urethra (principal); E03.9 Hypothyroidism, unspecified; I48.91 Unspecified atrial fibrillation; I11.0 Hypertensive heart disease with heart failure; I50.9 Heart failure, unspecified; G35 Multiple sclerosis; J44.9 Chronic obstructive pulmonary disease, unspecified; Z87.891 Personal history of nicotine dependence
CPT/HCPCS: J0690; J1956; J2001; J7030